=== PATIENT | female | born 1940 | race Caucasian/White ===

== ENCOUNTER → 2018-04-30 13:41 | Outpatient (CLI) | payer OTHER, SELFPAY ==
--- NOTE | 2018-04-30 13:46 | RAD_ITS ---
STUDY: X-RAY - CERVICAL SPINE REASON FOR EXAM: Female, 77 years old. Bilateral arm tingling and neck pain after falling facedown 2 weeks ago. TECHNIQUE: 5 view(s) of the cervical spine were obtained. COMPARISON: None FINDINGS: Pronounced degenerative narrowing of the predental space. Normal lateral atlantoaxial articulations. Normal odontoid process. Normal cervical lordosis. Normal vertebral bodies and endplates. Moderate disc space height narrowing at C4-C5, C5-C6 and C6-C7 disc space levels. Moderate stenosis of the right C4-C5, right C5-C6 intervertebral neural foramen and mild stenosis of the right C6-C7 intervertebral neural foramen. The soft tissue structures are unremarkable. RAD/Cerv Spine 4 or 5 Views IMPRESSION: 1. No acute osseous abnormality of the cervical spine. 2. Moderate disc space height narrowing at C4-C5 down to C6-C7 disc space levels. 3. 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 4. Mild stenosis of the right C6-C7 intervertebral neural foramen due to osteophytic encroachment. Electronically Signed: Mayur Calles MD at 14:54 EDT , Service support ,
== END ==
PROVIDERS: Family Provider Nurse Practitioner; PCP Nurse Practitioner; Visit Provider Nurse Practitioner
DX: M54.12 Radiculopathy, cervical region (principal); M48.02 Spinal stenosis, cervical region
CPT/HCPCS: 72050

== ENCOUNTER → 2018-05-21 09:51 | Outpatient (CLI) | payer MEDICARE, SELFPAY | PROVIDERS: Family Provider Nurse Practitioner; PCP Nurse Practitioner; Visit Provider Nurse Practitioner | DX: Z12.31 Encounter for screening mammogram for malignant neoplasm of breast (principal); Z78.0 Asymptomatic menopausal state | CPT/HCPCS: 77063; 77067 ==

== ENCOUNTER → 2018-07-07 14:14 | Outpatient (CLI) | payer MEDICARE, SELFPAY ==
--- NOTE | 2018-07-07 15:31 | NEURO ---
NCS and/or EMG Patient Report Ordering Doctor: Oksana Anglin DATE OF SERVICE: 07/07/18 Elizabeth Collier is a 77-year-old female presents for electrodiagnostic testing of the right upper limb. She reports numbness and tingling through the right arm with tingling in the fingertips. Electrodiagnostic findings: The right median motor nerve demonstrates prolonged distal latency with normal amplitude and conduction velocity. Normal right ulnar motor response. Normal right median and ulnar F waves. Prolonged right median sensory distal latency. Needle EMG testing demonstrates no evidence of denervation in any muscles tested, including the right cervical paraspinals. Motor unit action potentials were of normal amplitude and duration. Electrodiagnostic impression: This is an abnormal study in the right upper limb. 1. Electrodiagnostic findings demonstrate right-sided median mononeuropathy. This is consistent with a mild right carpal tunnel syndrome. 2. No electrodiagnostic evidence is noted for cervical radiculopathy. If there are any further questions, please do not hesitate to contact me
== END ==
PROVIDERS: Family Provider Nurse Practitioner; PCP Nurse Practitioner; Referring Provider Nurse Practitioner; Visit Provider Nurse Practitioner
DX: R20.2 Paresthesia of skin (principal)
CPT/HCPCS: 95886; 95909

== ENCOUNTER → 2019-05-24 14:12 | Outpatient (CLI) | payer MEDICARE, SELFPAY ==
--- NOTE | 2019-05-24 14:17 | BI_ITS ---
MAMMOGRAPHY - BILATERAL SCREENING REASON FOR EXAM: Female, 78 years old. Routine annual screening examination. PERTINENT HISTORY: Non-contributory. TECHNIQUE: Digital bilateral breast jax (3D mammographic acquisition) in the CC and MLO projections. 2-D mediolateral oblique (MLO) and craniocaudad (CC) views of both breasts were obtained. CAD: Full Field Digital Mammography with Computer Added Detection was performed. COMPARISON: Comparison is made with prior study dated May 21, 2018 and May 07, 2017. FINDINGS: Breast Composition: The breasts are almost entirely fatty. There are no dominant masses or suspicious calcifications. No other significant abnormalities are identified. There has been no significant change since the prior study. BI/SCREEN MAMM (CAD) W/JAX BILAT IMPRESSION: Stable bilateral screening mammogram. Yearly follow-up mammogram recommended. (A) ASSESSMENT CATEGORY: BIRADS Category 1: Negative. A letter regarding these results will be sent to the patient by the facility within 30 days. Approximately 10% of breast cancers are not detected by mammography. A normal mammogram should not delay biopsy of a clinically suspicious abnormality. [id number] Electronically Signed: Dawit Jensen, at 15:30 EDT , Service support ,
--- NOTE | 2019-05-24 14:26 | BD_ITS ---
STUDY: DUAL ENERGY X-RAY ABSORPTIOMETRY / DXA REASON FOR EXAM: Female, 78 years old. The patient is postmenopausal. Loss of height. TECHNIQUE: Bone Mineral Density (BMD) measurements of lumbar spine and bilateral hips were obtained. COMPARISON: Comparison is made with prior examination dated May 07, 2017. FINDINGS: Lumbar Spine (L1-L4): g/cm2 (0.918) / T-score (-2.1) / Z-score (-0.3) Findings are suggestive of osteopenia with a moderate fracture risk. Left Femur Total: g/cm2 (0.928) / T-score (-0.6) / Z-score (1.2) Left Femoral Neck: g/cm2 (0.886) / T-score (-1.1) / Z-score (0.9) Right Femur Total: g/cm2 (0.845) / T-score (-1.3) / Z-score (0.5) Right Femoral Neck: g/cm2 (0.805) / T-score (-1.7) / Z-score (0.3) The T-Scores on the most recent prior examination were: Lumbar Spine (L1-L4): There has been improvement of bone density since the previous examination. Left Femur Total: which represents a worsening of 1.8%. Right Femur Total: which represents an improvement of 8.2%. BD/Dexa Bone Density Study IMPRESSION: The patient is considered osteopenic as outlined below according to World Giles Organization (WHO) criteria with a moderate fracture risk. There has been improvement of bone density since the previous examination. Reference Information: The T-score is the number of standard deviations above or below the standard which is normal for young adults at their peak bone mineral density. The World Health Organization (WHO) interprets the T-scores as follows: Above -1 Normal bone density Between -1 and -2.5 Osteopenia Equal to / or below -2.5 Osteoporosis As a practical clinical guideline, osteopenia may be graded as follows: Mild -1 through -1.5 Moderate -1.6 through -2.0 Severe -2.1 through -2.4 The Z-score is the number of standard deviations above or below age-matched controls. A Z-score of less than -1.5 would be considered abnormal. References: 1. NIH Osteoporosis and Related Bone Diseases http://www.osteo.org 2. International Society for Clinical Densitometry http://www.iscd.org 3. National Osteoporosis Foundation http://www.nof.org Electronically Signed: Dawit Jensen, at 15:07 EDT , Service support ,
== END ==
PROVIDERS: Family Provider Nurse Practitioner; PCP Nurse Practitioner; Referring Provider Nurse Practitioner; Visit Provider Nurse Practitioner
DX: Z78.0 Asymptomatic menopausal state (principal); Z12.31 Encounter for screening mammogram for malignant neoplasm of breast
CPT/HCPCS: 77063; 77067; 77080

== ENCOUNTER → 2020-04-20 09:08 | Outpatient (CLI) | payer MEDICARE, SELFPAY ==
--- NOTE | 2020-04-20 09:12 | RAD_ITS ---
STUDY: AIR-CONTRAST BARIUM ESOPHAGRAM REASON FOR EXAM: Female, 79 years old. dysphagia with meats RADIATION DOSAGE (If Supplied By Facility): CTDIvol = ( ) mGy, DLP = ( ) mGycm. Individualized dose optimization techniques were used for this CT.? FLUOROSCOPY TIME (if supplied): ( 0:51 ) minutes/seconds TECHNIQUE: Air-contrast COMPARISON: None. FINDINGS: Swallowing was initiated normally. No nasopharyngeal reflux or aspiration. No Zenker''s diverticulum noted on the lateral view. There are however prominent spurs on the anterior aspect of the cervical vertebra which impinge upon the posterior esophagus from C5 through C7 Normal peristaltic activity noted in the proximal and mid esophagus. The distal esophagus demonstrates numerous tertiary contractions with intraesophageal and GE reflux. Additionally, there is enlargement of the heart which deviates the esophagus posteriorly and creates an abnormal angle at the GE junction. A 13 mm barium pill passed through the esophagus without difficulty RAD/Esophagus Dual Contrast IMPRESSION: Presbyesophagus with intraesophageal and GE reflux No demonstrated mass stricture or ulceration Anterior spurs of the lower cervical spine impinge upon the posterior esophagus and may be contributing to the dysphagia Cardiomegaly deviates the posterior distal esophagus creating an abnormal angle at the GE junction which may contribute to poor emptying of the esophagus Electronically Signed: Deshawn Vasquez MD at 12:13 EDT , Service support ,
== END ==
PROVIDERS: PCP Nurse Practitioner; Referring Provider Internal Medicine Gastroenterology; Visit Provider Internal Medicine Gastroenterology
DX: R13.10 Dysphagia, unspecified (principal)
CPT/HCPCS: 74221

== ENCOUNTER → 2020-05-22 09:39 | Outpatient (CLI) | payer MEDICARE, SELFPAY ==
--- NOTE | 2020-05-22 09:47 | ECHOD_ITS ---
Reason For Study: CARDIOMEGALY Procedure This was a 2D Doppler, Color Flow transthoracic echocardiogram. The exam was of adequate technical quality. Exam performed in department. Left Ventricle Normal LV size. Left ventricular systolic function is normal. The estimated ejection fraction is 55 %. No evidence for diastolic dysfunction. No regional wall motion abnormalities noted. Right Ventricle Normal RV size. Normal systolic function. Atria Normal left atrium. Normal right atrium. No doppler evidence for ASD. Mitral Valve There is no mitral annular calcification. Normal mitral valve. Trivial mitral valve insufficiency. Tricuspid Valve Normal tricuspid valve. Trivial tricuspid valve insufficiency. Right ventricular systolic pressure estimated to be 29 mmHg. Aortic Valve Trisinus/trileaflet aortic valve. Normal aortic valve. Trivial aortic valve insufficiency. Pulmonic Valve The pulmonic valve is not well visualized. Great Vessels Normal sized aortic root. Pericardium/Pleural No pericardial effusion. MMode/2D Measurements & Calculations LVIDd: 5.1 cm IVSd: 1.2 cm Ao root diam: 2.8 cm LVIDs: 3.8 cm LVPWd: 1.2 cm RVDd: 3.0 cm FS: 26.2 % LAV(MOD-bp): 63.0 ml LA A4 area: 18.2 cm2 LA dimension(2D): 3.7 cm LAV(MOD-bp) Indexed: 33.3 ml/m2 LAV(MOD-sp2): 69.2 ml LAV(MOD-sp4): 50.3 ml RA A4 area: 13.2 cm2 Doppler Measurements & Calculations MV E max raúl: 46.1 cm/sec Lat Peak E' Raúl: 5.5 cm/sec Med Peak E' Raúl: 5.6 cm/sec MV A max raúl: 77.3 cm/sec E/E' lat: 8.4 E/E' med: 8.2 MV E/A: 0.60 Ao V2 max: 143.7 cm/sec LV V1 max: 96.6 cm/sec PA V2 max: 103.0 cm/sec Ao max P.3 mmHg LV V1 max P.7 mmHg Ao V2 mean: 105.6 cm/sec Ao mean P.8 mmHg Ao V2 VTI: 31.6 cm TR max raúl: 255.5 cm/sec TR max P.1 mmHg Interpretation Summary Left ventricular systolic function is normal. The estimated ejection fraction is 55 %. Trivial mitral valve insufficiency. Trivial tricuspid valve insufficiency. Trivial aortic valve insufficiency. Right ventricular systolic pressure estimated to be 29 mmHg. No evidence for diastolic dysfunction. Ordering Physician: Oksana Anglin Referring Physician: Oksana Anglin Performed By: Radha Rodriguez, JAIME, RVT
== END ==
PROVIDERS: PCP Nurse Practitioner; Referring Provider Nurse Practitioner; Visit Provider Nurse Practitioner
DX: I51.7 Cardiomegaly (principal)
CPT/HCPCS: 93306

== ENCOUNTER → 2020-05-25 10:27 | Outpatient (CLI) | payer MEDICARE, SELFPAY ==
--- NOTE | 2020-05-25 10:51 | BI_ITS ---
MAMMOGRAPHY - BILATERAL SCREENING REASON FOR EXAM: Female, 79 years old. Routine annual screening examination. PERTINENT HISTORY: Non-contributory. TECHNIQUE: Digital bilateral breast jax (3D mammographic acquisition) in the CC and MLO projections. 2-D mediolateral oblique (MLO) and craniocaudad (CC) views of both breasts were obtained. CAD: Full Field Digital Mammography with Computer Added Detection was performed. COMPARISON: Comparison is made with prior examination date 05/24/2019 and 05/21/2018. FINDINGS: Breast Composition: The breasts are almost entirely fatty. There are no dominant masses or suspicious calcifications. No other significant abnormalities are identified. There has been no significant change since the prior study. BI/SCREEN MAMM (CAD) W/JAX BILAT IMPRESSION: Stable bilateral screening mammogram. Yearly follow-up mammogram recommended. (A) ASSESSMENT CATEGORY: BIRADS Category 1: Negative. A letter regarding these results will be sent to the patient by the facility within 30 days. Approximately 10% of breast cancers are not detected by mammography. A normal mammogram should not delay biopsy of a clinically suspicious abnormality. [id number] Electronically Signed: Dawit Jensen, at 12:58 EDT , Service support ,
== END ==
PROVIDERS: PCP Nurse Practitioner; Referring Provider Nurse Practitioner; Visit Provider Nurse Practitioner
DX: Z12.31 Encounter for screening mammogram for malignant neoplasm of breast (principal)
CPT/HCPCS: 77063; 77067

== ENCOUNTER → 2022-05-20 | Outpatient (CLI) | payer MEDICARE, SELFPAY ==
--- NOTE | 2022-05-20 09:19 | BD_ITS ---
STUDY: DUAL ENERGY X-RAY ABSORPTIOMETRY / DXA REASON FOR EXAM: Female, 81 years old. M85.89. Patient is postmenopausal. TECHNIQUE: Bone Mineral Density (BMD) measurements of lumbar spine and bilateral hips were obtained. COMPARISON: Comparison is made with prior study dated 05/24/2019. FINDINGS: Lumbar Spine (L1-L4): g/cm2 (0.848) / T-score (-1.8) / Z-score (0.9) Findings are suggestive of osteopenia with a moderate fracture risk. Left Femur Total: g/cm2 (0.848) / T-score (-0.8) / Z-score (1.3) Left Femoral Neck: g/cm2 (0.705) / T-score (-1.3) / Z-score (1.0) Right Femur Total: g/cm2 (0.768) / T-score (-1.4) / Z-score (0.6) Right Femoral Neck: g/cm2 (0.669) / T-score (-1.6) / Z-score (0.7) The T-Scores on the most recent prior examination were: Lumbar Spine (L1-L4): There has been worsening of bone density since the previous examination. Left Femur Total: which represents a worsening of 1.8%. Right Femur Total: which represents a worsening of 2%. BD/Dexa Bone Density Study IMPRESSION: The patient is considered osteopenic as outlined below according to World Giles Organization (WHO) criteria with a moderate fracture risk. There has been worsening of bone density since the previous examination. Reference Information: The T-score is the number of standard deviations above or below the standard which is normal for young adults at their peak bone mineral density. The World Health Organization (WHO) interprets the T-scores as follows: Above -1 Normal bone density Between -1 and -2.5 Osteopenia Equal to / or below -2.5 Osteoporosis As a practical clinical guideline, osteopenia may be graded as follows: Mild -1 through -1.5 Moderate -1.6 through -2.0 Severe -2.1 through -2.4 The Z-score is the number of standard deviations above or below age-matched controls. A Z-score of less than -1.5 would be considered abnormal. References: 1. NIH Osteoporosis and Related Bone Diseases www osteo.org 2. International Society for Clinical Densitometry www iscd.org 3. National Osteoporosis Foundation www nof.org Electronically Signed: Dawit Jensen MD at 14:06 EDT ,
== END | disposition home or self-care (01) ==
PROVIDERS: PCP Nurse Practitioner Family; Visit Provider Nurse Practitioner Family
DX: M85.80 Other specified disorders of bone density and structure, unspecified site (principal); Z78.0 Asymptomatic menopausal state
CPT/HCPCS: 77080

== ENCOUNTER 2022-07-03 10:00 | Outpatient (RCR) | payer MEDICARE, SELFPAY ==
--- NOTE | 2022-05-19 12:58 | HP.PTEVAL_ITS ---
Patient's Visit Information ALVAREZ ISABEL is a 81 year old F referred to Physical Therapy by CATHERINE MccannC with a diagnosis of Multiple falls. Date of Evaluation: 05/19/22 Physical Therapist: Luis Stacy, PT, ATC - Visit Plan Frequency: 2x /Week Duration: 4 Weeks Plan: B hip/knee/ankle strengthening, balance and proprio, gait training, nustep, and HEP - Subjective Pt reports she has had balance difficulty for a couple years. Pt reports her balance has progressively worsened over that time span. Pt reports she usually falls secondary to catching her foot on the ground. Pt reports she has lossed her balance on several occasions, but has only experienced 2 falls. Pt reports the first fall occurred [place] she [place] on her face which resulted in a broken nose. Pt reports 2 weeks ago, she was getting adjusted by her chiropractor, and after leaving the office, she fell again. Pt reports she has good sensation in her feet. Pt reports she does experience cramps in her feet. Pt reports she occasionally gets dizzy and lightheaded. Pt reports she has experienced those sx's since she had covid in January. Pt reports her dizziness only lasts for a couple seconds, and usually occurs when she turns her head. - Objective Neuro: B LE sensation is WNL to light touch. B patellar reflex= 2/3. Transfers: Pt is I with all transfers. MMT: B LE's are grossly rated at 4-/5 throughout. Gait: FGA: - Balance/Special Test Scores Functional Gait Assessment Score: 17 % Disability: 43.3400 Lower Extremity Functional Score: 57 - Goals Goal 1:: Increase B LE strength x 1 grade to aid with stair negotiation Goal Time Frame: 4-6 Weeks Goal 2:: Increase FGA score x 5 points to aid with preventing future falls Goal Time Frame: 4-6 Weeks Goal 3:: I with HEP Goal Time Frame: 4-6 Weeks - Rehabilitation Potential Physical Therapy Diagnosis: Pt has B LE weakness and a Hx of falls secondary to general weakness Rehabilitation Potential: Good - Anticipated Interventions Patient/Client Instruction: Educate patient on: Condition, Plan of Care For the Purpose of:: To improve self management, To prevent re-injury Therapeutic Exercise to Include: Strength training, Endurance training, Balance training, Gait and locomotor training, Dynamic Lumbar Stabilization For the Purpose of:: To improve muscle performance and motor function, To increase tolerance to activity/condition/position, To improve gait and locomotor functions Thank you for the opportunity to evaluate your patient. For Medicare and Medicare HMO plans, please review the plan of care and approve it. It will need to be FAXED BACK to us at [phone] for Medicare purposes. For Medicare only, by signing this I certify the plan of care. Please let me know if there are questions or concerns regarding this plan of care. Physician Signature: Date:
--- NOTE | 2022-07-03 10:31 | HP.PTDCSUM ---
It has been my pleasure to treat ALVAREZ ISABEL referred by Joellen Duffy, LORELEI-C, with the diagnosis of Multiple falls for a total of 9 visit(s). Discharge Date: Please see the following information for a summary of their discharge status. Subjective: I have improved a lot at this time % Improvement: 80 Objective/Function: FGA= significant improvement. MMT: B LE's 5/5 throughout. Pt is I with HEP and has achieved Rx goals Goal 1:: Increase B LE strength x 1 grade to aid with stair negotiation Goal Progress: Goal Met Goal 2:: Increase FGA score x 5 points to aid with preventing future falls Goal Progress: Goal Met Goal 3:: I with HEP Goal Progress: Goal Met Plan: Discharge to HEP If there are questions or concerns regarding this patient's physical therapy, please feel free to call me at [phone]. Thank you for the referral of this patient. Sincerely, Luis Stacy, PT, ATC Balance/Gait/Functional tests - Balance/Special Test Scores Functional Gait Assessment Score: 22 % Disability: 26.6700 Lower Extremity Functional Score: 65
== END 2022-07-03 10:42 | disposition home or self-care (01) ==
LOC: PT 10:00
PROVIDERS: PCP Nurse Practitioner Family; Referring Provider Nurse Practitioner Family; Visit Provider Nurse Practitioner Family
DX: R29.6 Repeated falls (principal)
CPT/HCPCS: 97110; 97161; 97164

== ENCOUNTER → 2022-08-01 | Outpatient (CLI) | payer MEDICARE, SELFPAY ==
--- NOTE | 2022-08-01 09:52 | CDU_ITS ---
Reason For Study: Dizziness Rt. Velocities/BP Lt. Velocities/BP Prox CCA 52.2/16.3 cm/sec. Prox CCA 60.8/14.6 cm/sec. Mid CCA 73/19.2 cm/sec. Mid CCA 59.7/16.8 cm/sec. Dist CCA 60.7/17.3 cm/sec. Dist CCA 54.2/12.4 cm/sec. Prox ICA 43.7/12.6 cm/sec. Prox ICA 34.3/9.7 cm/sec. Mid ICA 62.6/21.1 cm/sec. Mid ICA 56/14.5 cm/sec. Dist ICA 75.1/25.6 cm/sec. Dist ICA 53.2/19.2 cm/sec. Rt. ICA/CCA = 1.24. Lt. ICA/CCA = 0.94. Prox ECA 43.7/8.8 cm/sec. Prox ECA 52/8 cm/sec. Rt. Vert. 30/5.8 cm/sec. Lt. Vert. 37.1/8.8 cm/sec. Right Extracranial There is intimal thickening but no significant atherosclerotic plaque noted in the right common carotid artery. There is intimal thickening but no significant atherosclerotic plaque noted in the right internal carotid artery. There is intimal thickening but no significant atherosclerotic plaque noted in the right external carotid artery. Antegrade flow is noted in the right vertebral artery. Left Extracranial There is intimal thickening but no significant atherosclerotic plaque noted in the left common carotid artery. There is heterogeneous, irregular atherosclerotic plaque noted in the left internal carotid artery. There is intimal thickening but no significant atherosclerotic plaque noted in the left external carotid artery. Antegrade flow is noted in the left vertebral artery. Procedure Carotid Duplex [id number]. This is a Carotid Duplex examination using B-mode, color flow and specral Doppler. Exam performed in department. VL/Carotid Duplex Ultrasound Interpretation Summary Intimal thickening at the proximal right internal carotid artery with less than 50% stenosis Less than 50% stenosis right external carotid artery Minimal irregular plaque at the proximal left internal carotid artery with less than 50% stenosis Less than 50% stenosis left external carotid artery Patent and antegrade vertebral arteries bilaterally No change from the blood flow screening examination of January 07, 2019 Ordering Physician: Joellen Duffy Referring Physician: Joellen Duffy Performed By: Wendy Holbrook RVT
== END | disposition home or self-care (01) ==
LOC: CVS 09:50
PROVIDERS: PCP Nurse Practitioner Family; Referring Provider Nurse Practitioner Family; Visit Provider Nurse Practitioner Family
DX: I65.23 Occlusion and stenosis of bilateral carotid arteries (principal); I10 Essential (primary) hypertension; R26.9 Unspecified abnormalities of gait and mobility
CPT/HCPCS: 93880

== ENCOUNTER → 2022-08-11 | Outpatient (CLI) | payer MEDICARE, SELFPAY ==
[2022-08-11 15:39] LABS: Absolute Lymphocyte Count 0.82 X10^3/uL (0.83-4.51); Basophil# 0.03 X10^3/uL; Basophil% 0.6 % (0-1); Eosinophil# 0.05 X10^3/uL; Eosinophils% 0.9 % (0-5); Hematocrit 42.4 % (37-47); Lymphocyte # 0.82 X10^3/ul (0.83-4.51); Lymphocyte % 15.2 % (19-41); Mean Corpuscular Hgb 30.6 pg (27.0-32.0); Mean Corpuscular Volume 92.8 fL (81-99); Mean Platelet Vol. 12.2 fl (6.2-12.0); Monocyte# 0.45 X10^3/uL; Monocyte% 8.4 % (0-10); NRBC Flagged by Analyzer 0 % (0-5); Neutrophil # 4.01 X10^3/uL (2.7-7.7); Neutrophil % 74.5 % (47-70); Platelet Count 184 K/mm3 (150-450); RBC Distribution Width CV 13.4 % (11.6-14.6); RBC Distribution Width SD 45.7 fl (35.1-43.9); Red Blood Count 4.57 M/mm3 (4.2-5.4); White Blood Count 5.4 K/mm3 (4.4-11.0)
[2022-08-11 15:57] LABS: ALB/GLOB Ratio 1.3 RATIO (0.9-2.4); AST(SGOT) 30 U/L (15-37); Alanine Aminotransfer ALT/SGPT 24 U/L (13-56); Albumin, Serum 3.8 g/dL (3.2-5.0); Alkaline Phosphatase 57 U/L (45-117); Anion Gap 6 (5-15); BUN 15 mg/dL (7-18); BUN/Creat Ratio 16.9 RATIO (10-20); Calcium,Total 9.5 mg/dL (8.5-10.1); Chloride 106 mmol/L (98-107); Creatinine, Serum 0.89 mg/dL (0.55-1.02); EST Glomerular Filtration Rate 65 mL/min (>60); Est Glom Filt Rate - Afr Amer 79 mL/min (>60); Glucose 89 mg/dL (74-106); Potassium 4.6 mmol/L (3.5-5.1); Protein, Total 6.8 g/dL (6.4-8.2); Sodium Level 140 mmol/L (136-145)
== END | disposition home or self-care (01) ==
LOC: LABSPEC 15:16
PROVIDERS: PCP Nurse Practitioner Family; Visit Provider Nurse Practitioner Family
DX: R55 Syncope and collapse (principal)
CPT/HCPCS: 80053; 85025

== ENCOUNTER → 2022-08-11 | Outpatient (CLI) | payer MEDICARE, SELFPAY ==
--- NOTE | 2022-08-11 18:16 | MRI_ITS ---
STUDY: MRI BRAIN WITH AND WITHOUT CONTRAST REASON FOR EXAM: Female, 81 years old. Syncopal episodes TECHNIQUE: Standardized multiplanar fat and water weighted pulse sequences were obtained. IV 17mL CLARISCAN was administered for the contrast portion of the examination. COMPARISON: December 12, 2016 CT brain and MR brain December 07, 2013 FINDINGS: Normal size of the ventricles and extra-axial spaces for the patient''s age. Normal white matter tracts of the supratentorial brain. Normal bilateral basal ganglia. Normal thalami. There is no extra-axial fluid accumulation. Normal flow voids within the major intracranial circulation suggesting patency by spin echo criteria. Normal venous enhancement. There is no enhancing intra-axial or extra-axial abnormality. Normal sella turcica, pituitary gland, infundibular stalk, optic chiasm and hypothalamus. Normal tectal plate and pineal gland. Normal midbrain, pop and medulla. Normal cerebellum. Normal basal cisterns. Normal bilateral temporal bones. Normal bilateral internal auditory canals. No demonstrated orbital abnormality, within the constraints of a routine brain study. Normal visualized paranasal sinuses. Normal calvarium and skull base. Normal visualized soft tissue structures. Normal visualized upper cervical spine. MRI/Brain W/WO Contrast IMPRESSION: Normal unenhanced and enhanced MRI of the brain. Electronically Signed: Wayne Birmingham MD at 19:59 EST ,
== END | disposition home or self-care (01) ==
PROVIDERS: PCP Nurse Practitioner Family; Referring Provider Nurse Practitioner Family; Visit Provider Nurse Practitioner Family
DX: R55 Syncope and collapse (principal)
CPT/HCPCS: 70553; 80053; 85025; A9575

== ENCOUNTER → 2022-08-12 | Outpatient (CLI) | payer MEDICARE, SELFPAY ==
--- NOTE | 2022-08-12 13:41 | CT_ITS ---
STUDY: CTA HEAD AND NECK WITH CONTRAST REASON FOR EXAM: Female, 81 years old. Syncopal episodes. Constant neck pain. RADIATION DOSAGE (If Supplied By Facility): CTDIvol = ( 27.88 ) mGy, DLP = ( 1470.17 ) mGycm TECHNIQUE: CT angiography was performed with a multi-detector CT scanner. Data acquisition was obtained from the skull base through the vertex following intravenous administration of IV 100mL Isovue-370. MIP images were reconstructed from the axial data set. Post-processing of the angiographic images was performed, with multiplanar reformation and 3D reconstruction. Individualized dose optimization techniques were used for this CT. COMPARISON: No relevant priors. FINDINGS: Normal bilateral petrous carotid arteries. There is calcified plaque formation of the right cavernous carotid artery, without a cross-sectional luminal stenosis. There is calcified plaque formation of the left cavernous carotid artery, without a cross-sectional luminal stenosis. Normal right A1 segments of the anterior cerebral artery. Normal left A1 segments of the anterior cerebral artery. Normal intact anterior communicating artery (ACOM). Normal bilateral A2 segments of the anterior cerebral arteries. Normal right M1 and M2 segments of the middle cerebral arteries, with a normal M1 bifurcation. Normal left M1 and M2 segments of the middle cerebral arteries, with a normal M1 bifurcation. Normal right posterior communicating artery (PCOM). Normal left posterior communicating artery (PCOM). Normal bilateral vertebral arteries. Normal basilar artery with a normal basilar bifurcation. The visualized bilateral superior cerebellar (SCA) arteries are normal. Normal bilateral P1, P2 and visualized P3 segments of the posterior cerebral arteries. There is no demonstrated aneurysm of the [place]. There is no demonstrated abnormality of the visualized brain. AORTIC ARCH: There is atherosclerotic calcific plaque formation of the aortic arch and great vessels arising from the aortic arch, without a hemodynamically significant stenosis. There is a normal origin of the brachiocephalic, left common carotid, and left subclavian arteries. RIGHT CAROTID ARTERIES: Normal right common carotid artery (CCA). Normal right common carotid bulb. Normal origin of the right internal carotid (ICA) artery without a hemodynamically significant stenosis. Normal visualized cervical portion of the right internal carotid artery. Normal origin of the right external carotid artery (ECA). LEFT CAROTID ARTERIES: Normal left common carotid artery (CCA). Normal left common carotid bulb. Tiny calcific plaque is seen at the origin of the left internal carotid artery. Normal visualized cervical portion of the left internal carotid artery. Normal origin of the left external carotid artery (ECA). VERTEBRAL ARTERIES: Normal bilateral vertebral arteries. CT/CTA Head AND Neck W/ Contrast IMPRESSION: Tiny calcific plaque is seen at the origin of the left internal carotid artery. No significant stenosis is seen. Electronically Signed: Dawit Jensen MD at 15:23 EST ,
== END | disposition home or self-care (01) ==
LOC: CT 13:39
PROVIDERS: PCP Nurse Practitioner Family; Referring Provider Nurse Practitioner Family; Visit Provider Nurse Practitioner Family
DX: R55 Syncope and collapse (principal)
CPT/HCPCS: 70496; 70498; Q9967

== ENCOUNTER → 2022-08-19 | Outpatient (CLI) | payer MEDICARE, SELFPAY | END | disposition home or self-care (01) | LOC: PSN 09:54 | PROVIDERS: PCP Nurse Practitioner Family; Referring Provider Nurse Practitioner Family; Visit Provider Nurse Practitioner Family | DX: R55 Syncope and collapse (principal) | CPT/HCPCS: 93225; 93226 ==

== ENCOUNTER → 2022-10-05 | Outpatient (CLI) | payer MEDICARE, SELFPAY ==
--- NOTE | 2022-10-05 07:25 | MRI_ITS ---
HISTORY: Neck pain for many years, faint feeling when turning head to the right, frequent falls. TECHNIQUE: Multiplanar and multisequence MR images of the cervical spine were obtained without contrast. 246 images. COMPARISON: XR 09/05/2022, CTA 08/12/2022. FINDINGS: VERTEBRAE: Vertebral body heights maintained. Mild degenerative endplate changes of C3-4, C4-5, C5-6, and C6-7. Mild facet edema of the right C4-5 and left C3-4 levels. VERTEBRAL ALIGNMENT: No significant anterior or posterior subluxation. SPINAL CORD: Cervical cord signal and morphology within normal limits. SOFT TISSUES: No prevertebral fluid collection. INTERVERTEBRAL DISCS: Mild posterior disc bulge osteophyte complexes with uncovertebral and facet arthropathy at multiple levels. C2-3: Minimal narrowing of the thecal sac. No significant foraminal narrowing. C3-4: Mild central canal stenosis. Mild left and moderate right foraminal narrowing. C4-5: Minimal narrowing of the thecal sac. Mild left and moderate right foraminal narrowing. C5-6: Mild central canal stenosis. Mild left and moderate right foraminal narrowing. C6-7: Minimal narrowing of the thecal sac. Mild-moderate bilateral foraminal narrowing. C7-T1: Minimal narrowing of the thecal sac. No significant foraminal narrowing. MRI/Spine Cervical (Routine) IMPRESSION: Mild multilevel degenerative disc and facet disease resulting in mild spinal canal stenosis and right greater than left foraminal narrowing as above. Electronically Signed: Lisy Morales MD at 10:08 EST ,
== END | disposition home or self-care (01) ==
PROVIDERS: PCP Nurse Practitioner Family; Visit Provider Orthopaedic Surgery
DX: M54.2 Cervicalgia (principal)
CPT/HCPCS: 72141

== ENCOUNTER 2022-10-31 07:19 | Outpatient (RCR) | payer MEDICARE, SELFPAY ==
--- NOTE | 2022-10-31 08:25 | HP.PTEVAL ---
Patient's Visit Information ALVAREZ ISABEL is a 82 year old F referred to Physical Therapy by Dr. Garry Worrell MD with a diagnosis of Lightheadedness, syncope. Date of Evaluation: 10/31/22 Physical Therapist: Syed Duffy, DPT, OCS, CSCS - Visit Plan Frequency: 1x/Week Duration: 2-4 Weeks Plan: weekly as needed x 2-4 tomonitor effects of trial of adapatation VOR ex and progress if needed and balance as needed/helpful. next session, recheck positional and oculomotor , possibly MSQ need for progression or hold on tilt table test/heart monitor results. Consider cervico genic if others - Subjective My biggest issue is that she feels like she might pass out and has to grab something. Feels like the lights are going out. No pattern to it and sometimes happens in sitting. Typically she thinks it is if her head is turned to the right for a while. had PT last fall from Dr. Irvin and saw Luis as her balance was. That started last year and felt imbalance and like head is full. Fell last summer 2x. 3rd time she blacked out and fell and first two times she caught foot on floor. Currently she has not had an incident in the last few weeks but was happening 3-4x/week. Has lots of neck issues and Dr. Irvin does not think it is the problem. Then she was sent to Dr. Worrell. Willhave tilt table test 11/25. Will get heart monitor in mail and then f/u. Activities are pretty normal but just causes havoc if it happens. These spells typically last seconds. needs to sit down and goes away in seconds to minutes. Sleep is not great but that is normal for her. 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 Has cane and does not use. - Pain DANIEL Pain Intensity (Out of 10): 0 Pain Intensity Range: 0, 2 - Objective Walks and transfers safe and I on firm flat surface and bed and chair trasnfers. Steps are reciprocal with one rail. cervical AROM is 50 B rotation and 40 extension with some slight discomfort B rotations at end range. UE AROM WFL, reflexes 2/3 bi and tri, sensation WNL to gross light touch in UE, strength UE 4- without myotomal abnormalities in UE. - B hallpike jocelyn tests today, - roll tests. Oculomotor: no nystagmus with gaze or head shake. pursuit and saccades are normal and asymptomatic. VOR is slightly off putting horizontal for a second but not vertically. - ocular tilt. - skew eye deviation. - head thrust. No obvious vestibular problems other than some possible weakness but nothing that would point to a problem with passing out or lightheadedness. - Balance/Special Test Scores Functional Gait Assessment Score: 25 % Disability: 16.6700 CATSIB Score (Max score 120 seconds): 120 Dizziness Score: 28 - Goals Goal 1:: Trial of adaptation ex show improvement Goal Time Frame: 2-4 Weeks - Rehabilitation Potential Physical Therapy Diagnosis: vestibualr weakness a possibility Rehabilitation Potential: Questionable - Anticipated Interventions Patient/Client Instruction: Educate patient on: Condition, Plan of Care For the Purpose of:: To decrease pain, To improve muscle performance and motor function, To increase tolerance to activity/condition/position Therapeutic Exercise to Include: Balance training Comment: adaptation exercises trial. For the Purpose of:: To increase tolerance to activity/condition/position Thank you for the opportunity to evaluate your patient. For Medicare and Medicare HMO plans, please review the plan of care and approve it. It will need to be FAXED BACK to us at [phone] for Medicare purposes. For Medicare only, by signing this I certify the plan of care. Please let me know if there are questions or concerns regarding this plan of care. Physician Signature: Date:
--- NOTE | 2023-01-06 10:56 | HP.PT.NRP ---
ALVAREZ ISABEL was seen in my office for initial evaluation on 10/31/22. The following Plan of Care was established for this patient: Initial Frequency: 1x/Week Initial Duration: 2-4 Weeks Patient/Client Instruction: Educate patient on: Condition, Plan of Care For the Purpose of:: To decrease pain, To improve muscle performance and motor function, To increase tolerance to activity/condition/position Therapeutic Exercise to Include: Balance training For the Purpose of:: To increase tolerance to activity/condition/position This patient was last seen in our office 10/31/22. Pertinent comments regarding their Physical therapy will appear below: Pt seen one visit of POC and did not return or schedule any further visits. At this point, it has been over two months and I will discontinue due to nonattendance. At this point I will be discontinuing this patient from physical therapy. I would be happy to see this patient again in the future if found appropriate by the physician. Thank you! Syed Duffy, DPT, OCS, CSCS Balance/Gait/Functional tests - Balance/Special Test Scores Functional Gait Assessment Score: 25 % Disability: 16.6700 CATSIB Score (Max score 120 seconds): 120 Dizziness Score: 28
== END 2022-10-31 19:00 | disposition home or self-care (01) ==
LOC: PT 07:19
PROVIDERS: PCP Nurse Practitioner Family; Referring Provider Psychiatry & Neurology Sleep Medicine; Visit Provider Psychiatry & Neurology Sleep Medicine
DX: R42 Dizziness and giddiness (principal); R55 Syncope and collapse
CPT/HCPCS: 97162

== ENCOUNTER → 2022-11-25 | Outpatient (CLI) | payer MEDICARE, SELFPAY ==
[2022-11-25 09:26] LABS: Hematocrit 44.2 % (37-47); Hemoglobin 14.5 g/dL (12.0-15.0); Mean Corp Hgb Conc 32.8 g/dL (32-36); Mean Corpuscular Volume 94.6 fL (81-99); Mean Platelet Vol. 11.7 fl (6.2-12.0); Platelet Count 162 K/mm3 (150-450); RBC Distribution Width CV 13.8 % (11.6-14.6); RBC Distribution Width SD 48.1 fl (35.1-43.9); Red Blood Count 4.67 M/mm3 (4.2-5.4)
[2022-11-25 09:39] LABS: Anion Gap 4 (5-15); BUN 15 mg/dL (7-18); BUN/Creat Ratio 14.2 RATIO (10-20); Calcium,Total 9.5 mg/dL (8.5-10.1); Chloride 107 mmol/L (98-107); Creatinine, Serum 1.06 mg/dL (0.55-1.02); EST Glomerular Filtration Rate 53 mL/min (>60); Est Glom Filt Rate - Afr Amer 64 mL/min (>60); Glucose 111 mg/dL (74-106); Potassium 4.3 mmol/L (3.5-5.1); Sodium Level 141 mmol/L (136-145)
--- NOTE | 2022-11-25 16:56 | TILTTABLE_ITS ---
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 She was awake and alert and warm and dry. Her baseline heart rate was 82 bpm with a baseline blood pressure 172/94 mmHg. The cardiac rhythm was normal sinus rhythm. The patient was placed in the 70 degree upright tilt table position for approximately 20 minutes. The patient remained alert and oriented and warm and dry. The initial heart rate was 71 bpm. The blood pressure was 149/82 mmHg. The minimal heart rate was 67 bpm with a minimal blood pressure of 132/74 mmHg. The patient remained in normal sinus rhythm with a rare PVC. The patient reported her hands feeling cool and her arms feeling cool. The patient did not lose consciousness. The patient was subsequently administered nitroglycerin sublingual 0.4 mg x 1. The patient continued in the 70 degree upright tilt table position. She was initially alert and oriented and warm and dry. She subsequently came diaphoretic and unresponsive. The initial heart rate was 100 bpm. The minimal heart rate was 41 bpm. The blood pressure decreased to 64/40 mmHg (manual blood pressure recording). The cardiac rhythm was noted to demonstrate sinus rhythm/sinus bradycardia with subsequent junctional rhythm with subsequent return to sinus bradycardia gradual return to normal sinus rhythm. It was a rare PVC. During this time the patient initially stated she felt a little warm inside and then was reported as demonstrating eyes rolled to the back of head, closed eyes, no response from name-calling . The patient was subsequently placed in the supine position. The patient did receive 0.9 normal saline 500 cc x 1. She subsequently was noted to become responsive. She was noted to appear alert and oriented and initially pale and subsequently warm and dry. The heart rate was 44 bpm with a blood pressure of 98/68 mmHg. Her vital signs subsequently demonstrated a heart rate of 71 bpm with a blood pressure 135/66 mmHg. The cardiac rhythm remains sinus rhythm with a rare PVC. The patient was subsequently thought to be symptomatically and hemodynamically stable. She was eventually released home from the tilt table laboratory. 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 This note was generated using a voice recognition system and there may be incorrect words, spelling or punctuation that were not noted when reviewing the office note prior to saving.
[2022-11-25 17:04] VITALS: BP 149/82; BP 172/94; BP 64/40
== END | disposition home or self-care (01) ==
PROVIDERS: PCP Nurse Practitioner Family; Referring Provider Psychiatry & Neurology Sleep Medicine; Visit Provider Psychiatry & Neurology Sleep Medicine
DX: R55 Syncope and collapse (principal)
CPT/HCPCS: 36415; 80048; 85027; 93660; J7040; A4216

== ENCOUNTER → 2023-04-03 | Outpatient (CLI) | payer MEDICARE, SELFPAY ==
--- NOTE | 2023-04-03 14:34 | VDLE_ITS ---
Reason For Study: Edema of left leg RIGHT LEFT CFV is compressible, spontaneous, phasic, GSV is normal. competent and demonstrates normal CFV is compressible, spontaneous, phasic, augmentation. competent, and demonstrates normal Procedure augmentation. This is a venous duplex using B-mode, color FV is compressible, spontaneous, phasic, flow and spectral Doppler. competent and demonstrates normal Exam performed in department. augmentation. A preliminary report was called and/or faxed POP V is compressible, spontaneous, phasic, to Kerry. competent and demonstrates normal augmentation. T/P Trunk is compressible. PTV is compressible. Acute deep vein thrombosis is noted in the Royer V mid. It is dilated and NONCOMPRESSIBLE. VL/Venous Duplex US, Unilateral Interpretation Summary Acute deep venous thrombosis left peroneal vein. Patent and compressible left great saphenous vein Normal flow patterns right common femoral vein Ordering Physician: Joellen Duffy Referring Physician: Joellen Duffy Performed By: Wendy Holbrook RVT
== END | disposition home or self-care (01) ==
LOC: CVS 14:32
PROVIDERS: PCP Nurse Practitioner Family; Referring Provider Nurse Practitioner Family; Visit Provider Nurse Practitioner Family
DX: R60.0 Localized edema (principal)
CPT/HCPCS: 93971

== ENCOUNTER → 2023-06-10 | Outpatient (CLI) | payer MEDICARE, SELFPAY ==
[2023-06-10 17:16] LABS: Anion Gap 3 (5-15); BUN 24 mg/dL (7-18); BUN/Creat Ratio 24.9 RATIO (10-20); Calcium,Total 9.5 mg/dL (8.5-10.1); Chloride 109 mmol/L (98-107); Creatinine, Serum 0.96 mg/dL (0.55-1.02); EST Glomerular Filtration Rate 59 mL/min (>60); Est Glom Filt Rate - Afr Amer 72 mL/min (>60); Glucose 100 mg/dL (74-106); Potassium 4.2 mmol/L (3.5-5.1); Sodium Level 140 mmol/L (136-145)
== END | disposition home or self-care (01) ==
LOC: LAB 16:16
PROVIDERS: PCP Nurse Practitioner Family; Referring Provider Internal Medicine Cardiovascular Disease; Visit Provider Internal Medicine Cardiovascular Disease
DX: R55 Syncope and collapse (principal)
CPT/HCPCS: 36415; 80048

== ENCOUNTER 2023-07-06 07:25 | Day surgery (SDC) | payer MEDICARE, SELFPAY ==
[2023-06-11 08:56] VITALS: BMI 37.8
--- NOTE | 2023-07-06 09:05 | CL.IE_ITS ---
Patient: ALVAREZ ISABEL Study Date: 07/06/2023 Performing: Donavan Lamb MD : [id number] Age: 82 Gender: female PROCEDURES PERFORMED [id number])INSERTION OF LOOP RECORDER INDICATIONS Syncope PROCEDURE DETAILS The patient was brought to the Catheterization Lab in the postabsorptive nonsedated state. Informed consent was obtained prior to the procedure. Local anesthetic was given subcutaneously to the left upper chest area with Lidocaine 2%. Incision was made to the left upper chest. ICM Loop Recorder was inserted. Steri-strips applied to left subclavicular incision. The patient tolerated the procedure well. 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 Device Recommendations: Follow up with Primary Care Physician PROCEDURE MEDICATIONS Versed 1 mg IV Fentanyl 50 mcg IV Oxygen: 2 L/min via nasal cannula Antibiotic given in appropriate timeframe. Clindamycin 900 mg IV 07/06/2023 08:30:02 Signed By Donavan Lamb MD On 07/06/2023 09:04:04 Donavan Lamb MD
== END 2023-07-06 10:05 | disposition home or self-care (01) ==
PROVIDERS: PCP Nurse Practitioner Family; Referring Provider Internal Medicine Cardiovascular Disease; Visit Provider Internal Medicine Cardiovascular Disease
DX: R55 Syncope and collapse (principal); N18.30 Chronic kidney disease, stage 3 unspecified; E03.9 Hypothyroidism, unspecified; Z86.16 Personal history of COVID-19; Z79.899 Other long term (current) drug therapy; Z86.718 Personal history of other venous thrombosis and embolism; Z79.01 Long term (current) use of anticoagulants
CPT/HCPCS: 33285; 99152; 99153; J7040

== ENCOUNTER → 2023-08-14 | Outpatient (CLI) | payer MEDICARE, SELFPAY ==
--- NOTE | 2023-08-14 09:08 | BI_ITS ---
MAMMOGRAPHY - BILATERAL SCREENING REASON FOR EXAM: Female, 82 years old. Routine annual screening examination. PERTINENT HISTORY: Non-contributory. TECHNIQUE: Digital bilateral breast jax (3D mammographic acquisition) in the CC and MLO projections. 2-D mediolateral oblique (MLO) and craniocaudad (CC) views of both breasts were obtained. CAD: Full Field Digital Mammography with Computer Added Detection was performed. COMPARISON: Comparison is made with prior study dated May 25, 2020 and May 24, 2019. FINDINGS: Breast Composition: The breasts are almost entirely fatty. There are no dominant masses or suspicious calcifications. A loop recording device is seen in the deep inferior medial aspect of the left breast. No other significant abnormalities are identified. There has been no significant change since the prior study. BI/SCRN MAMM (CAD)W/JAX BILAT IMPRESSION: Stable bilateral screening mammogram. Yearly follow-up mammogram recommended. (A) ASSESSMENT CATEGORY: BIRADS Category 2: Benign. A letter regarding these results will be sent to the patient by the facility within 30 days. Approximately 10% of breast cancers are not detected by mammography. A normal mammogram should not delay biopsy of a clinically suspicious abnormality. [id number] Electronically Signed: Dawit Jensen MD at 10:45 EST ,
== END | disposition home or self-care (01) ==
LOC: OPBI 09:07
PROVIDERS: PCP Nurse Practitioner Family; Referring Provider Nurse Practitioner Family; Visit Provider Nurse Practitioner Family
DX: Z12.31 Encounter for screening mammogram for malignant neoplasm of breast (principal); Z95.818 Presence of other cardiac implants and grafts
CPT/HCPCS: 77063; 77067

== ENCOUNTER → 2023-10-19 | Outpatient (CLI) | payer MEDICARE, SELFPAY ==
--- NOTE | 2023-10-19 14:02 | NEURO ---
NCS and/or EMG Patient Report Ordering Doctor: JUS COPPOLA DATE OF SERVICE: 10/19/23 Clinical Summary: This is an 83 year old female patient presenting with symptoms of right lower extremity numbness, pain, and weakness. This EMG/NCS was performed to evaluate for right lumbosacral radiculopathy and peroneal mononeuropathy. Nerve Conduction Studies Summary: Nerve conduction studies performed in the right lower extremity were within normal ranges. Needle Examination Summary: Needle examination of select muscles of the right lower extremity was normal. Impression: This is a normal study. There is no electrodiagnostic evidence of a right lumbosacral radiculopathy or peroneal mononeuropathy. Multi Select Codes Neurology Neurology Interp Codes: 02091-01 Musc test done w/n test comp (interp) (1) and 69638-67 Nrv cndj tst 3-4 studies (interp)
== END | disposition home or self-care (01) ==
LOC: PSN 12:31
PROVIDERS: PCP Nurse Practitioner Family; Referring Provider Physician Assistant Medical; Visit Provider Physician Assistant Medical
DX: R29.898 Other symptoms and signs involving the musculoskeletal system (principal)
CPT/HCPCS: 95886; 95908

== ENCOUNTER → 2024-06-02 | Outpatient (CLI) | payer MEDICARE, SELFPAY ==
--- NOTE | 2024-06-02 09:46 | BD_ITS ---
STUDY: DUAL ENERGY X-RAY ABSORPTIOMETRY / DXA REASON FOR EXAM: Female, 83 years old. 627.8Menopausal postmenopausalBONE DENSITY REASON FOR EXAM -- Post-menopausal status TECHNIQUE: Bone Mineral Density (BMD) measurements of lumbar spine and bilateral hips were obtained. COMPARISON: Comparison is made with prior study May 20, 2022. FINDINGS: Lumbar Spine (L1-L4): g/cm2 (0.863) / T-score (-1.4) / Z-score (1.3) Findings are suggestive of osteopenia with a low fracture risk. Left Femur Total: g/cm2 (0.841) / T-score (-0.8) / Z-score (1.3) Left Femoral Neck: g/cm2 (0.684) / T-score (-1.5) / Z-score (0.9) Right Femur Total: g/cm2 (0.756) / T-score (-1.5) / Z-score (0.6) Right Femoral Neck: g/cm2 (0.700) / T-score (-1.3) / Z-score (1.0) The T-Scores on the most recent prior examination were: Lumbar Spine (L1-L4): There has been improvement of bone density since the previous examination. Left Femur Total: which represents a worsening of 0.9%. Right Femur Total: which represents a worsening of 1.6%. BD/Dexa Bone Density Study IMPRESSION: The patient is considered osteopenic as outlined below according to World Giles Organization (WHO) criteria with a low fracture risk. There has been worsening of bone density since the previous examination. Reference Information: The T-score is the number of standard deviations above or below the standard which is normal for young adults at their peak bone mineral density. The World Health Organization (WHO) interprets the T-scores as follows: Above -1 Normal bone density Between -1 and -2.5 Osteopenia Equal to / or below -2.5 Osteoporosis As a practical clinical guideline, osteopenia may be graded as follows: Mild -1 through -1.5 Moderate -1.6 through -2.0 Severe -2.1 through -2.4 The Z-score is the number of standard deviations above or below age-matched controls. A Z-score of less than -1.5 would be considered abnormal. References: 1. NIH Osteoporosis and Related Bone Diseases www osteo.org 2. International Society for Clinical Densitometry www iscd.org 3. National Osteoporosis Foundation www nof.org Electronically Signed: Dawit Jensen MD at 14:44 EDT ,
== END | disposition home or self-care (01) ==
LOC: OPBD 09:45
PROVIDERS: PCP Nurse Practitioner Family; Referring Provider Nurse Practitioner Family; Visit Provider Nurse Practitioner Family
DX: Z13.820 Encounter for screening for osteoporosis (principal); Z78.0 Asymptomatic menopausal state
CPT/HCPCS: 77080

== ENCOUNTER → 2024-06-09 | Outpatient (CLI) | payer MEDICARE, SELFPAY ==
--- NOTE | 2024-06-09 10:46 | VDLE_ITS ---
Reason For Study: DVT RIGHT LEFT GSV is normal. GSV is normal. CFV is compressible, spontaneous, phasic, CFV is compressible, spontaneous, phasic, competent and demonstrates normal competent, and demonstrates normal augmentation. augmentation. FV is compressible, spontaneous, phasic, FV is compressible, spontaneous, phasic, competent and demonstrates normal competent and demonstrates normal augmentation. augmentation. POP V is compressible, spontaneous, phasic, POP V is compressible, spontaneous, phasic, competent and demonstrates normal competent and demonstrates normal augmentation. augmentation. T/P Trunk is compressible. T/P Trunk is compressible. PTV is compressible. PTV is compressible. RT PerV is compressible. PeroV is partially compressible with bright Procedure intraluminal echoes consistent with Chronic This is a venous duplex using B-mode, color DVT. Venous flow noted. flow and spectral Doppler. Exam performed in department. Compared to 04/03/2023. A preliminary report was called and/or faxed to Joellen NOGUERA. 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 Deep veins of the right lower extremity are patent and compressible segmentally . There is no evidence of right lower extremity deep vein thrombosis. The bilateral great sap henous veins appear patent and compressible segmentally. Ordering Physician: Joellen Duffy Referring Physician: Joellen Duffy Performed By: Wendy Holbrook RVT
== END | disposition home or self-care (01) ==
LOC: CVS 10:46
PROVIDERS: PCP Nurse Practitioner Family; Referring Provider Nurse Practitioner Family; Visit Provider Nurse Practitioner Family
DX: I82.452 Acute embolism and thrombosis of left peroneal vein (principal)
CPT/HCPCS: 93970

== ENCOUNTER → 2024-10-20 | Outpatient (CLI) | payer MEDICARE, SELFPAY ==
--- NOTE | 2024-10-20 10:16 | BI_ITS ---
MAMMOGRAPHY - BILATERAL SCREENING REASON FOR EXAM: Female, 84 years old. Routine annual screening examination. PERTINENT HISTORY: Non-contributory. TECHNIQUE: Digital bilateral breast jax (3D mammographic acquisition) in the CC and MLO projections. 2-D mediolateral oblique (MLO) and craniocaudad (CC) views of both breasts were obtained. CAD: Full Field Digital Mammography with Computer Added Detection was performed. COMPARISON: Comparison is made with prior study dated August 14, 2023 and May 25, 2020. FINDINGS: Breast Composition: The breasts are almost entirely fatty. There are no dominant masses or suspicious calcifications. Loop recording device is once again seen in the deep inferior medial aspect of the left breast. No other significant abnormalities are identified. There has been no significant change since the prior study. BI/SCRN MAMM (CAD)W/JAX BILAT IMPRESSION: Stable bilateral screening mammogram. Yearly follow-up mammogram recommended. (A) ASSESSMENT CATEGORY: BIRADS Category 2: Benign. A letter regarding these results will be sent to the patient by the facility within 30 days. Approximately 10% of breast cancers are not detected by mammography. A normal mammogram should not delay biopsy of a clinically suspicious abnormality. [id number] Electronically Signed: Dawit Jensen MD at 11:12 EST ,
== END | disposition home or self-care (01) ==
LOC: OPBI 10:15
PROVIDERS: PCP Nurse Practitioner Family; Referring Provider Nurse Practitioner Family; Visit Provider Nurse Practitioner Family
DX: Z12.31 Encounter for screening mammogram for malignant neoplasm of breast (principal)
CPT/HCPCS: 77063; 77067

== ENCOUNTER → 2024-11-04 | Outpatient (CLI) | payer MEDICARE, SELFPAY ==
--- NOTE | 2024-11-04 12:45 | CT_ITS ---
PROCEDURE: Noncontrast CT of the left lower extremity ([place]by protocol). REASON FOR EXAM: Left knee osteoarthritis. Preoperative evaluation. TECHNIQUE: Contiguous unenhanced axial CT images were obtained through the left hip, knee, and ankle. Sagittal and coronal reformats were created. COMPARISON: None available FINDINGS: The proximal femurs are intact. Mild degenerative changes in the hip joints. The included portions of the pelvis are intact. Moderate degenerative change of the pubic symphysis. No pelvic mass or adenopathy. Moderate sigmoid diverticulosis. The uterus appears to be present. Small fat containing right inguinal hernia. No soft tissue mass or drainable fluid collection of the left knee. Bones are osteopenic. No acute fracture or dislocation of the left knee. Tiny joint effusion. There are moderate/severe degenerative changes of the medial and lateral compartments, to a moderate degree involving the patellofemoral compartment. Mild chondrocalcinosis of the medial and lateral compartments. No sizable popliteal cyst. Images through the left ankle are unremarkable. CT/Extremity Lower without Contra IMPRESSION: Osteopenia. No acute bony abnormality of the left hip, knee, or ankle. Moderate/severe tricompartmental degenerative changes of the left knee as above . Tiny left knee effusion. Moderate sigmoid diverticulosis. Small fat containing right inguinal hernia. One or more dose reduction techniques were used (e.g., Automated exposure contr ol, adjustment of the mA and/or kV according to patient size, use of iterative reconstruction technique). [facility]
[2024-11-04 13:28] LABS: Absolute Lymphocyte Count 0.92 X10^3/uL (0.83-4.51); Absolute Neutrophil Count 4.5 X10^3/uL (2.0-7.7); Basophil# 0.04 X10^3/uL; Basophil% 0.7 % (0-1); Eosinophil# 0.09 X10^3/uL; Eosinophils% 1.5 % (0-5); Hematocrit 41.8 % (37-47); Hemoglobin 13.9 g/dL (12.0-15.0); Lymphocyte # 0.92 X10^3/ul (0.83-4.51); Lymphocyte % 15.1 % (19-41); Mean Corp Hgb Conc 33.3 g/dL (32-36); Mean Corpuscular Hgb 30.9 pg (27.0-32.0); Mean Corpuscular Volume 92.9 fL (81-99); Mean Platelet Vol. 11.1 fl (6.2-12.0); Monocyte# 0.54 X10^3/uL; Monocyte% 8.8 % (0-10); NRBC Flagged by Analyzer 0 % (0-5); Neutrophil # 4.51 X10^3/uL (2.7-7.7); Neutrophil % 73.7 % (47-70); Platelet Count 180 K/mm3 (150-450); RBC Distribution Width CV 13.7 % (11.6-14.6); RBC Distribution Width SD 46.5 fl (35.1-43.9); White Blood Count 6.1 K/mm3 (4.4-11.0)
[2024-11-04 14:02] LABS: Albumin, Serum 3.7 g/dL (3.2-5.0); Anion Gap 6 (5-15); BUN 19 mg/dL (7-18); BUN/Creat Ratio 19.9 RATIO (10-20); Calcium,Total 9.3 mg/dL (8.5-10.1); Chloride 104 mmol/L (98-107); Creatinine, Serum 0.96 mg/dL (0.55-1.02); EST Glomerular Filtration Rate 59 mL/min (>60); Est Glom Filt Rate - Afr Amer 72 mL/min (>60); Glucose 110 mg/dL (74-106); Magnesium 2.1 mg/dL (1.6-2.6); Sodium Level 139 mmol/L (136-145)
== END | disposition home or self-care (01) ==
PROVIDERS: PCP Nurse Practitioner Family; Referring Provider Specialist; Visit Provider Specialist
DX: Z01.818 Encounter for other preprocedural examination (principal); M17.0 Bilateral primary osteoarthritis of knee; M94.262 Chondromalacia, left knee; M21.162 Varus deformity, not elsewhere classified, left knee; E03.9 Hypothyroidism, unspecified
CPT/HCPCS: 36415; 73700; 80048; 82040; 83735; 84443; 85025; 87081

== ENCOUNTER 2024-11-28 07:07 | Observation (INO) | payer MEDICARE, SELFPAY ==
--- NOTE | 2024-11-07 08:04 | EKG12_ITS ---
Test Reason : PRE OP Blood Pressure : */* mmHG Vent. Rate : 84 BPM Atrial Rate : 84 BPM P-R Int : 160 ms QRS Dur : 86 ms QT Int : 396 ms P-R-T Axes : 63 -21 58 degrees QTcB Int : 467 ms Normal sinus rhythm Normal ECG Confirmed by Griffin Scanlon ([id number]), editor producer LUIS E BAHENA ([id number]) on 11/07/2024 11:13:37 AM Referred By: Yevgeniy Pal Confirmed By: Griffin Scanlon
--- NOTE | 2024-11-07 10:36 | PAT.ANESEVAL ---
Pre-Assessment Diagnosis/Proposed Procedure Planned Operative Procedure(s): (L) ERAS, Total Knee Replacement Robotic Arm Assist Anesthesia History Anesthesia History - manager location: Anesthesia History - manager location Hx Hospitalization No 11/02/24 11:03 Any Problems With Anesthesia No 11/02/24 11:03 Cholinesterase deficiency No 11/02/24 11:03 You/Your Family Experience No 11/02/24 11:03 fever (hyperthermia) with Relationship Recent Exposure to Contagious Disease Does patient have nerve No 11/02/24 11:03 stimulator Patient instructed to have device shut off --Does patient have Pacemaker or ICD? When Was Last Pacemaker Check QUESTION #4 FULL TEXT: You/Your Family Experience fever (hyperthermia) with Anesthesia Last Oral Intake Last Oral intake: Last Oral Intake NPO since Meds taken in AM with sips of water? Meds patient instructed to take am of surgery PONV PONV - manager location: PONV - manager location Female Yes 11/02/24 11:03 HX of Motion Sickness Yes 11/02/24 11:03 HX of N/V After Surgery No 11/02/24 11:03 Non-Smoker Yes 11/02/24 11:03 Duration of Surgery greater Yes 11/02/24 11:03 than 60 minutes Number of Risk Factors 4 11/02/24 11:03 PONV Score Severe Risk 11/02/24 11:03 Height & Weight Height & Weight: Anesthesia: Height & Weight Height 5 ft 1 in 12/09/23 10:14 Respiratory Assessment Respiratory Assessment - manager location: Respiratory Tract Infection Hx - manager location Hx Respiratory Tract Infection Yes: just getting over cold 11/02/24 11:03 11/02/24 STOP Sleep Apnea STOP Sleep Apnea - manager location: STOP Sleep Apnea - manager location Hx Hypertension Yes: controlled with med 11/02/24 11:03 Hx Sleep Apnea No 11/02/24 11:03 CPAP BIPAP Do you snore loudly (louder No 11/02/24 11:03 than talking or can be heard Do you often feel tired/ No 11/02/24 11:03 fatigued/ sleepy during daytime? Has anyone observed you stop No 11/02/24 11:03 breathing during sleep? STOP Results Negative 11/02/24 11:03 QUESTION #5 FULL TEXT : Do you snore loudly (louder than talking or can be heard through closed doors)? 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 Specify any problems Hx of Preganancy in last 3 N/A 11/02/24 11:03 Months Nurse Filling Out Transfusion [facility]BU[facility] 11/02/24 11:03 & Questions: Date: 11/02/24 11/02/24 11:03 Time: 11:11/02/24 11:03 Patient unable to answer at this time (ie. confused, unrespo /Reproduction History /Reproductive History - manager location: /Reproductive Hx- manager location Hx Now Gestational Age (in weeks): EDC: Hx Hx Para Hx Section SAB PFSH Medical History (Updated 11/02/24 @ 11:11 by Ceci Whitley) Wears glasses Depression Thyroid disease Arthritis DVT (deep venous thrombosis) Near syncope History of diverticulitis Shortness of breath on exertion Non-smoker Leg cramps History of Holter monitoring History of echocardiogram History of stress test Implantable loop recorder present Cardiology follow-up encounter Stress incontinence IBS (irritable bowel syndrome) Diverticulosis DDD (degenerative disc disease) Dizziness Syncope Pneumothorax, right Closed fracture of multiple ribs Cardiomegaly COVID Psoriasis Metabolic syndrome Hyponatremia Depressive disorder Vitamin D deficiency Cervical arthritis Hyperlipidemia Chest pressure CKD (chronic kidney disease) stage 3, GFR 30-59 ml/min MTHFR gene mutation Hypothyroid Fall History of DVT (deep vein thrombosis) BMI 37.0-37.9, adult Osteopenia Injury of elbow, left Acid reflux Postmenopausal Gait disturbance Presbyesophagus Hypothyroidism Hypertensive urgency Accelerated hypertension Home Medications ?Medication ?Instructions ?Recorded ?Last Taken ?Type amlodipine 5 mg tablet 2.5 mg PO DAILY 05/21/23 Unknown History calcipotriene-betamethasone 0.005 1 applic topical DAILY 05/21/23 Unknown History %-0.064 % topical suspension (Taclonex) cholecalciferol (vitamin D3) 50 50 mcg PO DAILY 05/21/23 Unknown History mcg (2,000 unit) capsule citalopram 20 mg tablet 20 mg PO DAILY 05/21/23 Unknown History folic acid 400 mcg tablet 0.4 mg PO DAILY 05/21/23 Unknown History ibandronate 150 mg tablet 150 mg PO QMONTH 05/21/23 Unknown History levothyroxine 100 mcg tablet 100 mcg PO MOTUWETHFRSA 06/10/23 Unknown History (Synthroid) Lactobacillus acidophilus 10 100 mmu cells PO DAILY 11/02/24 Unknown History billion cell capsule (Probiotic) calcium 100 mg capsule 100 mg PO DAILY 11/02/24 Unknown History Allergy/AdvReac Type Severity Reaction Status Date / Time diphenhydramine (From Allergy Angioedema Verified 11/02/24 11:00 Benadryl) prednisone Allergy Angioedema Verified 11/02/24 11:00 Sulfa (Sulfonamide Allergy Hives Verified 11/02/24 11:00 Antibiotics) amoxicillin (From Augmentin) AdvReac Nausea/Vom/ Verified 11/02/24 11:00 Diarrhea clavulanic acid (From AdvReac Nausea/Vom/ Verified 11/02/24 11:00 Augmentin) Diarrhea Family History Father Hypertension Myocardial infarction Aortic aneurysm Mother Hypertension Brain aneurysm Brother Aortic aneurysm Sister Thyroid disorder DVT (deep venous thrombosis) Hypertension Daughter Pulmonary embolism Thyroid disorder Grandmother Diabetes Surgical History (Updated 11/02/24 @ 11:11 by Ceci Whitley) History of tonsillectomy H/O cataract extraction Hx of arthroscopy of right knee History of carpal tunnel release of both wrists Social History Smoking Status: Never smoker alcohol intake: never substance use type: does not use caffeine: Yes Type: coffee Number of servings: 4 and tea Audit: Pertinent Findings Pertinent Findings EKG Perinent findings: 06/10/23 nsr, lad Consult pertinent findings: cardio 12/09/23. Sncope. no further symptoms. prior work up all negative Recommendation Anesthesia Recommendation Anesthesia recommendation: OPTIMIZED for anesthesia
--- NOTE | 2024-11-08 15:53 | PAT.ANESEVAL ---
Pre-Assessment Diagnosis/Proposed Procedure Planned Operative Procedure(s): (L) ERAS, Total Knee Replacement Robotic Arm Assist Anesthesia History Anesthesia History - dual rate dealer: Anesthesia History - dual rate dealer Hx Hospitalization No 11/02/24 11:03 Any Problems With Anesthesia No 11/02/24 11:03 Cholinesterase deficiency No 11/02/24 11:03 You/Your Family Experience No 11/02/24 11:03 fever (hyperthermia) with Relationship Recent Exposure to Contagious Disease Does patient have nerve No 11/02/24 11:03 stimulator Patient instructed to have device shut off --Does patient have Pacemaker or ICD? When Was Last Pacemaker Check QUESTION #4 FULL TEXT: You/Your Family Experience fever (hyperthermia) with Anesthesia Last Oral Intake Last Oral intake: Last Oral Intake NPO since Meds taken in AM with sips of water? Meds patient instructed to take am of surgery PONV PONV - dual rate dealer: PONV - dual rate dealer Female Yes 11/02/24 11:03 HX of Motion Sickness Yes 11/02/24 11:03 HX of N/V After Surgery No 11/02/24 11:03 Non-Smoker Yes 11/02/24 11:03 Duration of Surgery greater Yes 11/02/24 11:03 than 60 minutes Number of Risk Factors 4 11/02/24 11:03 PONV Score Severe Risk 11/02/24 11:03 Height & Weight Height & Weight: Anesthesia: Height & Weight Height 5 ft 1 in 12/09/23 10:14 Respiratory Assessment Respiratory Assessment - dual rate dealer: Respiratory Tract Infection Hx - dual rate dealer Hx Respiratory Tract Infection Yes: just getting over cold 11/02/24 11:03 11/02/24 STOP Sleep Apnea STOP Sleep Apnea - dual rate dealer: STOP Sleep Apnea - dual rate dealer Hx Hypertension Yes: controlled with med 11/02/24 11:03 Hx Sleep Apnea No 11/02/24 11:03 CPAP BIPAP Do you snore loudly (louder No 11/02/24 11:03 than talking or can be heard Do you often feel tired/ No 11/02/24 11:03 fatigued/ sleepy during daytime? Has anyone observed you stop No 11/02/24 11:03 breathing during sleep? STOP Results Negative 11/02/24 11:03 QUESTION #5 FULL TEXT : Do you snore loudly (louder than talking or can be heard through closed doors)? 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 Specify any problems Hx of Preganancy in last 3 N/A 11/02/24 11:03 Months Nurse Filling Out Transfusion [facility] 11/02/24 11:03 & Questions: Date: 11/02/24 11/02/24 11:03 Time: 11:11/02/24 11:03 Patient unable to answer at this time (ie. confused, unrespo /Reproduction History /Reproductive History - dual rate dealer: /Reproductive Hx- dual rate dealer Hx Now Gestational Age (in weeks): EDC: Hx Hx Para Hx Section SAB PFSH Medical History (Updated 11/02/24 @ 11:11 by Ceci Whitley) Wears glasses Depression Thyroid disease Arthritis DVT (deep venous thrombosis) Near syncope History of diverticulitis Shortness of breath on exertion Non-smoker Leg cramps History of Holter monitoring History of echocardiogram History of stress test Implantable loop recorder present Cardiology follow-up encounter Stress incontinence IBS (irritable bowel syndrome) Diverticulosis DDD (degenerative disc disease) Dizziness Syncope Pneumothorax, right Closed fracture of multiple ribs Cardiomegaly COVID Psoriasis Metabolic syndrome Hyponatremia Depressive disorder Vitamin D deficiency Cervical arthritis Hyperlipidemia Chest pressure CKD (chronic kidney disease) stage 3, GFR 30-59 ml/min MTHFR gene mutation Hypothyroid Fall History of DVT (deep vein thrombosis) BMI 37.0-37.9, adult Osteopenia Injury of elbow, left Acid reflux Postmenopausal Gait disturbance Presbyesophagus Hypothyroidism Hypertensive urgency Accelerated hypertension Home Medications ?Medication ?Instructions ?Recorded ?Last Taken ?Type amlodipine 5 mg tablet 2.5 mg PO DAILY 05/21/23 Unknown History calcipotriene-betamethasone 0.005 1 applic topical DAILY 05/21/23 Unknown History %-0.064 % topical suspension (Taclonex) cholecalciferol (vitamin D3) 50 50 mcg PO DAILY 05/21/23 Unknown History mcg (2,000 unit) capsule citalopram 20 mg tablet 20 mg PO DAILY 05/21/23 Unknown History folic acid 400 mcg tablet 0.4 mg PO DAILY 05/21/23 Unknown History ibandronate 150 mg tablet 150 mg PO QMONTH 05/21/23 Unknown History levothyroxine 100 mcg tablet 100 mcg PO MOTUWETHFRSA 06/10/23 Unknown History (Synthroid) Lactobacillus acidophilus 10 100 mmu cells PO DAILY 11/02/24 Unknown History billion cell capsule (Probiotic) calcium 100 mg capsule 100 mg PO DAILY 11/02/24 Unknown History Allergy/AdvReac Type Severity Reaction Status Date / Time diphenhydramine (From Allergy Angioedema Verified 11/02/24 11:00 Benadryl) prednisone Allergy Angioedema Verified 11/02/24 11:00 Sulfa (Sulfonamide Allergy Hives Verified 11/02/24 11:00 Antibiotics) amoxicillin (From Augmentin) AdvReac Nausea/Vom/ Verified 11/02/24 11:00 Diarrhea clavulanic acid (From AdvReac Nausea/Vom/ Verified 11/02/24 11:00 Augmentin) Diarrhea Family History Father Hypertension Myocardial infarction Aortic aneurysm Mother Hypertension Brain aneurysm Brother Aortic aneurysm Sister Thyroid disorder DVT (deep venous thrombosis) Hypertension Daughter Pulmonary embolism Thyroid disorder Grandmother Diabetes Surgical History (Updated 11/02/24 @ 11:11 by Ceci Whitley) History of tonsillectomy H/O cataract extraction Hx of arthroscopy of right knee History of carpal tunnel release of both wrists Social History Smoking Status: Never smoker alcohol intake: never substance use type: does not use caffeine: Yes Type: coffee Number of servings: 4 and tea Audit: Pertinent Findings HISTORY of Pertinent Findings History of Pertinent Findings: EKG Pertinent Findings EKG Perinent findings 06/10/23 nsr, lad 11/07/24 10:38 Consult Pertinent Findings Consult pertinent findings cardio 12/09/23. Sncope. no 11/07/24 10:38 further symptoms. prior work up all negative Recommendation Anesthesia Recommendation Anesthesia recommendation: F/U recommended (Notice to surgery. Patient's TSH is 12.2. Please note that levels greater than 8 have a higher incidence of postoperative infection and poor wound healing.)
--- NOTE | 2024-11-09 10:04 | PAT.ANE_ITS ---
Pre-Assessment Diagnosis/Proposed Procedure Planned Operative Procedure(s): (L) ERAS, Total Knee Replacement Robotic Arm Assist Anesthesia History Anesthesia History - probation manager: Anesthesia History - probation manager Hx Hospitalization No 11/02/24 11:03 Any Problems With Anesthesia No 11/02/24 11:03 Cholinesterase deficiency No 11/02/24 11:03 You/Your Family Experience No 11/02/24 11:03 fever (hyperthermia) with Relationship Recent Exposure to Contagious Disease Does patient have nerve No 11/02/24 11:03 stimulator Patient instructed to have device shut off --Does patient have Pacemaker or ICD? When Was Last Pacemaker Check QUESTION #4 FULL TEXT: You/Your Family Experience fever (hyperthermia) with Anesthesia Last Oral Intake Last Oral intake: Last Oral Intake NPO since Meds taken in AM with sips of water? Meds patient instructed to take am of surgery PONV PONV - probation manager: PONV - probation manager Female Yes 11/02/24 11:03 HX of Motion Sickness Yes 11/02/24 11:03 HX of N/V After Surgery No 11/02/24 11:03 Non-Smoker Yes 11/02/24 11:03 Duration of Surgery greater Yes 11/02/24 11:03 than 60 minutes Number of Risk Factors 4 11/02/24 11:03 PONV Score Severe Risk 11/02/24 11:03 Height & Weight Height & Weight: Anesthesia: Height & Weight Height 5 ft 1 in 12/09/23 10:14 Respiratory Assessment Respiratory Assessment - probation manager: Respiratory Tract Infection Hx - probation manager Hx Respiratory Tract Infection Yes: just getting over cold 11/02/24 11:03 11/02/24 STOP Sleep Apnea STOP Sleep Apnea - probation manager: STOP Sleep Apnea - probation manager Hx Hypertension Yes: controlled with med 11/02/24 11:03 Hx Sleep Apnea No 11/02/24 11:03 CPAP BIPAP Do you snore loudly (louder No 11/02/24 11:03 than talking or can be heard Do you often feel tired/ No 11/02/24 11:03 fatigued/ sleepy during daytime? Has anyone observed you stop No 11/02/24 11:03 breathing during sleep? STOP Results Negative 11/02/24 11:03 QUESTION #5 FULL TEXT : Do you snore loudly (louder than talking or can be heard through closed doors)? 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 Specify any problems Hx of Preganancy in last 3 N/A 11/02/24 11:03 Months Nurse Filling Out Transfusion [facility] 11/02/24 11:03 & Questions: Date: 11/02/24 11/02/24 11:03 Time: 11:11/02/24 11:03 Patient unable to answer at this time (ie. confused, unrespo /Reproduction History /Reproductive History - probation manager: /Reproductive Hx- probation manager Hx Now Gestational Age (in weeks): EDC: Hx Hx Para Hx Section SAB PFSH Medical History (Updated 11/02/24 @ 11:11 by Ceci Whitley) Wears glasses Depression Thyroid disease Arthritis DVT (deep venous thrombosis) Near syncope History of diverticulitis Shortness of breath on exertion Non-smoker Leg cramps History of Holter monitoring History of echocardiogram History of stress test Implantable loop recorder present Cardiology follow-up encounter Stress incontinence IBS (irritable bowel syndrome) Diverticulosis DDD (degenerative disc disease) Dizziness Syncope Pneumothorax, right Closed fracture of multiple ribs Cardiomegaly COVID Psoriasis Metabolic syndrome Hyponatremia Depressive disorder Vitamin D deficiency Cervical arthritis Hyperlipidemia Chest pressure CKD (chronic kidney disease) stage 3, GFR 30-59 ml/min MTHFR gene mutation Hypothyroid Fall History of DVT (deep vein thrombosis) BMI 37.0-37.9, adult Osteopenia Injury of elbow, left Acid reflux Postmenopausal Gait disturbance Presbyesophagus Hypothyroidism Hypertensive urgency Accelerated hypertension Home Medications ?Medication ?Instructions ?Recorded ?Last Taken ?Type amlodipine 5 mg tablet 2.5 mg PO DAILY 05/21/23 Unk nown History calcipotriene-betamethasone 0.005 1 applic topical OLIVA LY 05/21/23 Unknown History %-0.064 % topical suspension (Taclonex) cholecalciferol (vitamin D3) 50 50 mcg PO DAILY Unknown History mcg (2,000 unit) capsule citalopram 20 mg tablet 20 mg PO DAILY 05/21/23 Unkn own History folic acid 400 mcg tablet 0.4 mg PO DAILY 05/21/23 Unk nown History ibandronate 150 mg tablet 150 mg PO QMONTH 05/21/23 Un known History levothyroxine 100 mcg tablet 100 mcg PO MOTUWETHFRSA 0 06/10/23 Unknown History (Synthroid) Lactobacillus acidophilus 10 100 mmu cells PO DAILY Unknown History billion cell capsule (Probiotic) calcium 100 mg capsule 100 mg PO DAILY 11/02/24 Unk nown History Allergy/AdvReac Type Severity Reaction Status Date / Time diphenhydramine (From Allergy Angioedema Verified 11/02/24 11:00 Benadryl) prednisone Allergy Angioedema Verified 11/02/24 11:00 Sulfa (Sulfonamide Allergy Hives Verified 11/02/24 11:00 Antibiotics) amoxicillin (From Augmentin) AdvReac Nausea/Vom/ Verified 11/02/24 11:00 Diarrhea clavulanic acid (From AdvReac Nausea/Vom/ Verified 11/02/24 11:00 Augmentin) Diarrhea Family History Father Hypertension Myocardial infarction Aortic aneurysm Mother Hypertension Brain aneurysm Brother Aortic aneurysm Sister Thyroid disorder DVT (deep venous thrombosis) Hypertension Daughter Pulmonary embolism Thyroid disorder Grandmother Diabetes Surgical History (Updated 11/02/24 @ 11:11 by Ceci Whitley) History of tonsillectomy H/O cataract extraction Hx of arthroscopy of right knee History of carpal tunnel release of both wrists Social History Smoking Status: Never smoker alcohol intake: never substance use type: does not use caffeine: Yes Type: coffee Number of servings: 4 and tea Audit: Pertinent Findings HISTORY of Pertinent Findings History of Pertinent Findings: EKG Pertinent Findings EKG Perinent findings 06/10/23 nsr, lad 11/07/24 10:38 Consult Pertinent Findings Consult pertinent findings cardio 3/13/24. Sncope. no 11/07/24 10:38 further symptoms. prior work up all negative Pertinent Findings EKG Perinent findings: 11/07/2024 normal EKG Echo (EF%) pertinent findings: 05/22/2020 EF 55% PA pressure 29 mmHg Additional pertinent findings: TSH 12.2 lab 11/04/2024 this value sent to surgeon for optimization Recommendation Anesthesia Recommendation Anesthesia recommendation: OPTIMIZED for anesthesia
--- NOTE | 2024-11-24 08:12 | HP.PCM_ITS ---
History and Physical Patient Name: Elizabeth MonzonB: 1940 From: DATE OF PRE-OPERATIVE EXAM: 11/21/2024 DATE OF SURGERY: 11/28/2024 SCHEDULED PROCEDURE: Robotic assisted left total knee arthroplasty. HISTORY OF PRESENT ILLNESS: Patient is an 84-year-old female presenting for preop visit. Patient states that she has had left knee pain for 9 to 12 months. Patient states that her pain is described as constant, intermittent, sharp, aching, sore, burning. The patient presents with left knee pain, currently rated as a 4 out of 10, but has experienced pain levels up to 9 out of 10. The pain is exacerbated by walking and finding a comfortable position to sleep in. Patient states that the pain is worse with stairs. The patient reports difficulty walking through a store, only managing a couple of aisles, and experiences problems with stairs at home. The pain is primarily located in the whole knee, with the worst part being along the inside. Patient states that the pain is better with sitting, resting, elevating the leg, walking, and icing. Patient states that she is no longer able to do housework and shopping due to the left knee. Patient states that she feels unsafe doing excess walking due to the pain. Patient states that she has tried rest, ice, elevation, compression, chiropractor, and gel injections with help. Patient states that she tried cortisone injection, oral medications with no help. Patient states that she has not tried weight loss, physical therapy. The patient has a history of cortisone injections, which provided only 2 days of relief and caused a reaction, including a headache for four days and redness on the face and chest. The patient has tried Icy Hot for pain relief, but it irritates their skin. They currently take Tylenol every night for pain management. Patient denies any previous surgeries on the joint. Patient states that she has had to walk with a cane due to this pain. REVIEW OF SYSTEMS: Review Of Systems: Constitutional: Denies anorexia, anxiety, change in appetite, fever and weight change,hard of hearing, and vision problems. Cardiovasular: Denies chest pain, heart murmur, irregular heartbeat and peripheral vascular disease. Respiratory: Reports cough and shortness of breath, but denies asthma, pneumonia, sleep apnea, tuberculosis and wheezing. Gastrointestinal: Reports diarrhea, nausea. Denies constipation, heartburn, bloody stools and vomiting, and difficulty swallowing. Genitourinary: . (F Genital Sx) Reports incontinence. Musculoskeletal: Reports leg swelling and pain but denies trouble walking and weakness and limp. Skin: Denies Raynaud's, history of shingles and tattoo. Neurological: Reports ambulatory dysfunction but denies dizziness, numbness/tingling and tremor. Psychiatric: Reports stress, but denies anxiety, depression, insomnia and mental illness. Hematologic/Lymphatic: Reports bleeding/bruising tendency, but denies anemia and past transfusion. Reviewed, no changes. PAST MEDICAL HISTORY: Advance Care Plan: Other Directive, LIVING WILL Effective Date: 04/07/2024 Past Medical History: Medical Problems: Arthritis, Thyroid Disease, High Blood Pressure, History Of Blood Clots/ DVT, Covid- 19 Accidents: Fracture - 3 ribs 2022 lung and liver bruising Surgical Hx: Tonsillectomy - (1950) [place] Arthroscopy - (2003) [facility] Carpal Tunnel - (1980) 1984-[facility] Anesthesia Complications: None Assistive Devices: Glasses Reviewed, no changes. 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 Personal Habits: Cigarette Use: Never.Smokeless Tobacco: Never Used Smokeless Tobacco.E-Cigarette Use: Never used.Alcohol: Denies use.Drug Use: Denies Use.Enjoy Exercising: Exercises 1-3 X/Week. Reviewed, no changes. VITALS: Ht: 61 Wt: 187lb Wt [id number] BMI: 35.3 BP: 132/80 Pulse: 79 Resp: 14 T: 97.3 T: 36.3C Pain Level: 6 O2SatR: 96 ALLERGIES: Sulfa Benadryl Prednisone MEDICATIONS: Levothyroxine Sodium 100 mcg, Citalopram Hydrobromide 20 mg, Amlodipine Besylate 2.5 mg, Ibandronate Sodium 150 mg, Vitamin D3 5000 Unit daily, Probiotic (Lactobacillus) two capsules once a day, Folic Acid 400 mcg daily PRE-OP EXAM: General appearance:NORMAL Other: Eyes: Conjunctivae and lids: NORMAL Pupils: ERR Ears, Nose, Mouth, and Throat: NORMAL Other: Inspection of lips, teeth and gums: NORMAL Other: Neck: Examination of neck: no masses noted. Respiratory: Assessment of respiratory effort: NORMAL Other: Auscultation of lungs: clear to auscultation no wheezes, rhonchi or rales. Cardiovascular: Auscultation of heart: regular rate and rhythm, no murmurs, gallops or rubs. Exam of carotid arteries: NORMAL Other: Gastrointestinal: Exam of abdomen: soft, nontender, nondistended bowel sounds present. Lymphatic: Palpation of nodes in neck: NORMAL Other: Palpation of nodes in Axillae: NORMAL Other: Neurological: see below Psychiatric: Orientation to time, place and person: NORMAL Other: Mood and affect: NORMAL Other: PHYSICAL EXAMINATION: Left Knee: - Pain: Primarily throughout, most severe along the medial joint line. - Tenderness: Exquisite over the medial joint line. - Range of Motion: 0-115 degrees. - Effusion: Moderate effusion noted. - Right Knee: - Pain: Less compared to the left knee. - Stability: 1mm MCL laxity, 1mm LCL laxity. IMAGING STUDIES: Previous left knee x-rays were reviewed. These include bilateral standing fi lms. Patient does have medial joint space narrowing however more mild to moderate in nature with some mild marginal osteophyte formation. Interestingly, patient also has findings consistent with severe medial compartment disease on the right. IMPRESSION: 1. Hypertension. 2. Acid reflux. 3. Cardiomegaly. 4. Cervical arthritis. 5. Chronic kidney disease stage III. 6. Degenerative joint disease. 7. Depressive disorder. 8. Diverticulosis. 9. History of DVT. 10. Hyperlipidemia. 11. Hyponatremia. 12. Hypothyroidism. 13. Irritable bowel syndrome. 14. MTHFR gene mutation. 15. Osteopenia. 16. Vitamin D deficiency. 17 bilateral osteoarthritis of knees. 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 19. Varus deformity left knee. 20. Repeated falls. PLAN: The surgeon did discuss and review all treatment options with the patient including surgical versus nonsurgical. At this time the patient does wish to proceed with the above-stated procedure. Potential risks benefits and complications of the procedure were discussed and reviewed with the patient including but not limited to , infection, nerve and blood vessel damage, persistent pain, numbness, tingling, paresthesias, blood clot, pulmonary embolism, in the requirement for possible further surgery. Patient expressed full understanding. Has no further questions for the doctor. Does agree to proceed with the above-stated procedure, and has signed the appropriate surgery consent form. DVT prophylaxis: Patient will be on Eliquis 2.5 mg twice daily following surgery. Patient will be on JOHN hose for 2 weeks postoperatively. Pain medications: Patient will be on Tylenol 1000 mg every 8 hours as well as oxycodone for breakthrough pain. Patient will be on famotidine for 30 days postoperatively. Patient will be on senna for as needed postoperative constipation. We will avoid NSAIDs due to GFR less than 60 and Eliquis postoperatively. ___ I have re-examined the patient. There are no clinical changes since date of exam. ___ See progress notes for changes. ___ Dictated on admission Date: Time: Signature:
[2024-11-28] VITALS (16 sets, daily range): BP systolic 93–150; BP diastolic 50–84; PULSE 57–88; RESP 16–18; TEMP 36.1–36.6; O2SAT 94–100
[2024-11-28] MEDS: Acetaminophen 500 MG Tablet 1000 MG PO ×3 (06:05→21:10)
[2024-11-28] MEDS: Gabapentin 600 MG Tablet PO (06:06)
[2024-11-28] MEDS: Lactated Ringers 1,000 ML 999 ML IV (06:21)
[2024-11-28] MEDS: Magnesium 1 GM over 15 mins IV (06:22)
[2024-11-28] MEDS: Lactated Ringers 1,000 ML 75 ML IV ×2 (06:23→17:20)
--- NOTE | 2024-11-28 06:53 | PRE.ANES_ITS ---
ASA Classification* ASA Classification ASA Classification: 3 Assessment & Plan Anesthesia* Anesthesia Assessment Anesthesia Assessment: Discussed sedation and/or anesthesia options, risks, benefits, and alternatives with patient/parents/legal guardian/POA. Questions invited. The patient/parents/legal guardian/POA seems to understand and agrees to proceed with anesthesia plan. Reviewed the physical assessment, medical history, allergy history and patient home medications list prior to surgery/procedure/anesthetic and documented any changes. Performed airway and anesthesia risk assessments. Anesthesia Type Anesthesia Type: Spinal and Block Anesthesia Focused Assessment* Temperature: 97.6 F Pulse Rate: 80 Blood Pressure: 150/84 Respiratory Rate: 16 Pulse Ox: 97 Airway Assessment Mouth opens: >3 cm Mallampati Score: II Focused Labs Anesthesia Preop lab: CBC WBC 6.1 K/mm3 (4.4-11.0) 11/04/24 13:17 11/04/24 RBC 4.50 M/mm3 (4.2-5.4) 11/04/24 13:17 11/04/24 Hgb 13.9 g/dL (12.0-15.0) 11/04/24 13:17 11/04/24 Hct 41.8 % (37-47) 11/04/24 13:17 11/04/24 Plt Count 180 K/mm3 (150-450) 11/04/24 13:17 11/04/24 CHEMISTRY Potassium 4.0 mmol/L (3.5-5.1) 11/04/24 13:17 11/04/24 Sodium 139 mmol/L (136-145) 11/04/24 13:17 11/04/24 Magnesium 2.1 mg/dL (1.6-2.6) 11/04/24 13:17 11/04/24 BUN 19 mg/dL (7-18) H 11/04/24 13:17 11/04/24 Creatinine 0.96 mg/dL (0.55-1.02) 11/04/24 13:17 11/04/24 Glucose 110 mg/dL (74-106) H 11/04/24 13:17 11/04/24 TSH 12.200 uIU/mL (0.358-3.740) H 11/04/24 13:17 0 11/04/24 COAG Pre-Assessment Diagnosis/Proposed Procedure Planned Operative Procedure(s): (L) ERAS, Total Knee Replacement Robotic Arm Assist Anesthesia History Anesthesia History - independent living advisor: Anesthesia History - independent living advisor Hx Hospitalization No 11/02/24 11:03 Any Problems With Anesthesia No 11/02/24 11:03 Cholinesterase deficiency No 11/02/24 11:03 You/Your Family Experience No 11/02/24 11:03 fever (hyperthermia) with Relationship Recent Exposure to Contagious No 11/28/24 05:57 Disease Does patient have nerve No 11/02/24 11:03 stimulator Patient instructed to have device shut off --Does patient have Pacemaker No 11/28/24 05:59 or ICD? When Was Last Pacemaker Check QUESTION #4 FULL TEXT: You/Your Family Experience fever (hyperthermia) with Anesthesia Last Oral Intake Last Oral intake: Last Oral Intake NPO since 03:30 11/28/24 05:59 Meds taken in AM with sips of No 11/28/24 05:59 water? Meds patient instructed to take am of surgery PONV PONV - independent living advisor: PONV - independent living advisor Female Yes 11/02/24 11:03 HX of Motion Sickness Yes 11/02/24 11:03 HX of N/V After Surgery No 11/02/24 11:03 Non-Smoker Yes 11/02/24 11:03 Duration of Surgery greater Yes 11/02/24 11:03 than 60 minutes Number of Risk Factors 4 11/02/24 11:03 PONV Score Severe Risk 11/02/24 11:03 Height & Weight Height & Weight: Anesthesia: Height & Weight Height 51 ft 11/28/24 05:59 Weight: 84.55 kg 11/28/24 05:59 Body Mass Index (BMI) 0.3 11/28/24 05:59 Respiratory Assessment Respiratory Assessment - independent living advisor: Respiratory Tract Infection Hx - independent living advisor Hx Respiratory Tract Infection Yes: just getting over cold 11/02/24 11:03 11/02/24 STOP Sleep Apnea STOP Sleep Apnea - independent living advisor: STOP Sleep Apnea - independent living advisor Hx Hypertension Yes: controlled with med 11/02/24 11:03 Hx Sleep Apnea No 11/02/24 11:03 CPAP BIPAP Do you snore loudly (louder No 11/02/24 11:03 than talking or can be heard Do you often feel tired/ No 11/02/24 11:03 fatigued/ sleepy during daytime? Has anyone observed you stop No 11/02/24 11:03 breathing during sleep? STOP Results Negative 11/02/24 11:03 QUESTION #5 FULL TEXT : Do you snore loudly (louder than talking or can be heard through closed doors)? 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 Specify any problems Hx of Preganancy in last 3 N/A 11/02/24 11:03 Months Nurse Filling Out Transfusion NBUCHER 11/02/24 11:03 & Questions: Date: 11/02/24 11/02/24 11:03 Time: 11:05 11/02/24 11:03 Patient unable to answer at this time (ie. confused, unrespo /Reproduction History /Reproductive History - independent living advisor: /Reproductive Hx- independent living advisor Hx Now Gestational Age (in weeks): EDC: Hx Hx Para Hx Section SAB Active Medications Active Medications: Current Medications Generic Name Dose Route Start Last Admin Trade Name Freq PRN Reason Stop Dose Admin Acetaminophen 1,000 mg 11/28/24 07:30 11/28/24 06:05 Acetaminophen 500 Mg Tablet PO 11/28/24 07:31 1,000 mg X1 ONE Administration Tranexamic Acid 1,000 mg/ 0 mg 11/28/24 07:30 Sodium Chloride 100 ml OPERA.SITE 11/28/24 07:31 X1 ONE Sodium Chloride 78.4 ml/ 0 ml 11/28/24 07:30 Ropivacaine 200 mg/ IV 11/28/24 07:31 Epinephrine HCl 0.6 mg/ X1 ONE Morphine Sulfate 5 mg Gabapentin 600 mg 11/28/24 07:30 11/28/24 06:06 Gabapentin 600 Mg Tablet PO 11/28/24 07:31 600 mg X1 ONE Administration Magnesium Sulfate 1 gm/ 102 mls @ 408 mls/hr 11/28/24 07:30 11/28/24 06:22 Dextrose IV 11/28/24 07:44 408 mls/hr X1 ONE Administration Lactated Ringer's 1,000 mls @ 999 mls/hr 11/28/24 07:30 11/28/24 06:21 IV 11/28/24 08:30 999 mls/hr .[id number] JORGE Administration Cefazolin Sodium 2 gm/ N/A 20 mls @ 400 mls/hr 11/28/24 07:30 IV 11/28/24 07:32 PREOP ONE Lactated Ringer's 1,000 mls @ 75 mls/hr 11/28/24 05:30 11/28/24 06:23 IV 11/29/24 08:09 75 mls/hr .[id number] JORGE Administration Protocol Insulin Human Lispro 1 - 6 unit 11/28/24 07:30 Insulin Lispro 100 Unit/Ml Insuln.Pen SC 11/28/24 23:59 Q4H PRN PRN BG>/= 180, SEE PROTOCOL Protocol PFSH Medical History Wears glasses Depression Thyroid disease Arthritis DVT (deep venous thrombosis) Near syncope History of diverticulitis Shortness of breath on exertion Non-smoker Leg cramps History of Holter monitoring History of echocardiogram History of stress test Implantable loop recorder present Cardiology follow-up encounter Stress incontinence IBS (irritable bowel syndrome) Diverticulosis DDD (degenerative disc disease) Dizziness Syncope Pneumothorax, right Closed fracture of multiple ribs Cardiomegaly COVID Psoriasis Metabolic syndrome Hyponatremia Depressive disorder Vitamin D deficiency Cervical arthritis Hyperlipidemia Chest pressure CKD (chronic kidney disease) stage 3, GFR 30-59 ml/min MTHFR gene mutation Hypothyroid Fall History of DVT (deep vein thrombosis) BMI 37.0-37.9, adult Osteopenia Injury of elbow, left Acid reflux Postmenopausal Gait disturbance Presbyesophagus Hypothyroidism Hypertensive urgency Accelerated hypertension Home Medications ?Medication ?Instructions ?Recorded ?Last Taken ?Type amlodipine 5 mg tablet 2.5 mg PO DAILY 05/21/2311/22 History calcipotriene-betamethasone 0.005 1 applic topical OLIVA LY PRN rash 05/21/23 Unknown History %-0.064 % topical suspension (Taclonex) cholecalciferol (vitamin D3) 50 50 mcg PO DAILY 11/23/24 History mcg (2,000 unit) capsule citalopram 20 mg tablet 20 mg PO DAILY 05/21/23 03/11/22 History folic acid 400 mcg tablet 0.4 mg PO DAILY 05/21/23 History ibandronate 150 mg tablet 150 mg PO QMONTH 05/21/23 History levothyroxine 100 mcg tablet 100 mcg PO MOTUWETHFRSA 0 06/10/23 11/27/24 07:00 History (Synthroid) 200 mcg Lactobacillus acidophilus 10 100 mmu cells PO DAILY 11/23/24 History billion cell capsule (Probiotic) calcium 100 mg capsule 100 mg PO DAILY 11/02/24 History Allergy/AdvReac Type Severity Reaction Status Date / Time diphenhydramine (From Allergy Angioedema Verified 11/28/24 05:54 Benadryl) prednisone Allergy Angioedema Verified 11/28/24 05:54 Sulfa (Sulfonamide Allergy Hives Verified 11/28/24 05:54 Antibiotics) amoxicillin (From Augmentin) AdvReac Nausea/Vom/ Verified 11/28/24 05:54 Diarrhea clavulanic acid (From AdvReac Nausea/Vom/ Verified 11/28/24 05:54 Augmentin) Diarrhea Family History Father Hypertension Myocardial infarction Aortic aneurysm Mother Hypertension Brain aneurysm Brother Aortic aneurysm Sister Thyroid disorder DVT (deep venous thrombosis) Hypertension Daughter Pulmonary embolism Thyroid disorder Grandmother Diabetes Surgical History History of tonsillectomy H/O cataract extraction Hx of arthroscopy of right knee History of carpal tunnel release of both wrists Social History Smoking Status: Never smoker alcohol intake: never substance use type: does not use caffeine: Yes Type: coffee Number of servings: 4 and tea Review of Systems (Anesthesia) ROS Narrative System reviewed and no additional complaints, except as documented.
--- NOTE | 2024-11-28 07:08 | RAD_ITS ---
EXAM: XR Left Knee, 1 or 2 Views CLINICAL INDICATION: TECHNIQUE: Frontal and/or lateral views of the left knee. COMPARISON: No relevant prior studies available. FINDINGS: BONES/JOINTS: Total knee replacement. Intact hardware. No acute fracture. No dislocation. SOFT TISSUES: Soft tissue emphysema and swelling. RAD/Knee 1 or 2 Views IMPRESSION: Status post total knee replacement in anatomic position. Reading Location[facility]
[2024-11-28] MEDS: Cefazolin 2 GM in Syringe 10 ML IV (07:29)
--- NOTE | 2024-11-28 07:30 | KNEE_PTH ---
PATIENT: ELIZABETH ISABEL LOC: MS3 U#:[id number] AGE/SX: 84/F ROOM: ID310 RE11/28/[address]: Dr. Timothy Person MD : 1940 BED: 1 DIS: 11/30/2024 SPEC #: [id number] RECD: 11/28/24 11:20 STATUS: DANIELA DISLASneha #: [id number] JAMEY: 11/28/24 07:[address]: Yevgeniy Pal DEPT: SURGICAL PATHOLOGY RECD BY: Josi Laws ENTERED: 11/28/24 11:48 SP TYPE: TOTAL KNEE OTHR DR: Joellen Duffy, MECHANICAL SOUND TECHNICIAN-C Tissues: Knee, NOS Procedures: Decalcification bone/plaque Surgery Specimen Level IV HEADER OPERATION: ERAS, total knee replacment robotic arm assist PRE-OP DIAGNOSIS: Osteoarthritis of left knee TISSUE SUBMITTED: Left knee bone and tissue MICROSCOPIC DIAGNOSIS Left knee, total knee arthroplasty: * Articular bone with reactive/degenerative changes and fatty marrow spaces. MICROSCOPIC DESCRIPTION Slides are reviewed. GROSS DESCRIPTION Received in formalin labeled the patient's name Elizabeth Smith and designated left knee bone and tissue are multiple yellow to red-brown ragged irregular shaped bone and mid amount of yellow-red soft tissue fragments that aggregate to 11.5 x 10.5 x 2.0 cm. The largest fragment is consistent with a tibial plateau and shows a yellow smooth articular surface along the periphery and is red-brown and granular centrally. The margin of this fragment is dark red-brown hemorrhagic and trabecular. The additional fragments show focal areas of articular surface that also vary from yellow-fernández and smooth to red-brown and granular. Sectioning through the bony fragment shows articular cartilage that ranges from 0.2 to 0.3 cm thick.Cassette summary:1-field support representative section of smaller fragments2-field support representative section of tibial plateau Cassette submitted after decalcification11/28/2004 TC: [id number]
[2024-11-28 08:05] LABS: Bedside Glucose 95 mg/dL (74-106)
[2024-11-28] MEDS: TXA in NS 100ml (Placed in Wound) OPERA.SITE (08:40)
[2024-11-28] MEDS: Joint Pain Solution (NO KETOROLAC) IV (08:46)
--- NOTE | 2024-11-28 09:05 | OP.PCM_ITS ---
Operative Report (Standard) Operative Information Date of Procedure: 11/28/24 Pre-Operative Diagnosis: Left knee primary osteoarthritis Post-Operative Diagnosis: Left knee primary osteoarthritis Surgery/Procedure Performed: Left knee minimally invasive robotic assisted total knee replacement evening sitter: Yes [employer]fg [employer]: Anna Ashford Tasks completed by industrial hire sales assistant: Other (See operative report) Additional assistant financial accountant?: No Type of Anesthesia: Spinal RN Documented Start/Stop Times: Operation Date: 11/28/24 07:30 Case Time Into Pre-Op 11/28/24 05:23 Anesthesia Start 11/28/24 07:29 Into Room 11/28/24 07:29 Out of Pre-Op 11/28/24 07:32 Procedure Start 11/28/24 07:59 Procedure End 11/28/24 09:44 Anesthesia End 11/28/24 09:50 Out of Room 11/28/24 09:50 Into Recovery 11/28/24 09:53 Out of Recovery 11/28/24 11:00 Procedure Start Time: 07:59 Procedure Stop Time: 09:44 Select all DRAINS/GRAFTS/IMPLANTS that apply: Prosthetic device Prosthetic device details: See body of operative report Special Medications: 2 g Ancef, 1 g TXA at incision, 1 g TXA closure, 10 mg Decadron, joint cocktail (5 mg Duramorph, 30 mL of 0.5% Ropivicaine, 1000 units of epinephrine, 30 mg of Toradol) Estimated Blood Loss: 400 mL Fluids Replaced: 2200 mL crystalloid Specimen collected: Yes Description of specimen(s) removed: Bony cuts Description of surgery: Implants used: 1. Radford size 4 triathlon cruciate retaining distal femoral press-fit component 2. Radford size 4 press-fit tritanium tibial baseplate 3. Radford X3 9 mm CS polyethylene Brief history operative indications: 84-year-old f with history of left knee osteoarthritis with radiographic findings with loss of joint space, osteophyte formation and subchondral sclerosis. Failed conservative measures as mentioned in the H&P. Discussion of total knee arthroplasty as well as risk and benefits were discussed the patient including but not limited to blood loss, DVTs, PEs, neurovascular damage, general risk of anesthesia including loss of life, and stiffness or instability were discussed with patient. Patient demonstrated understanding and was able to sign informed consent. Procedure: On the date of procedure patient's left lower extremity was marked in the preoperative area. The patient was then taken back to the operating room where the patient was placed on the table in the supine position. All bony prominences were identified a well-padded. Anesthesia assumed control of the C-spine and airway and remained controlled throughout the remainder of the procedure. A tourniquet was placed on the left upper thigh and the leg was prepped in a sterile fashion. The surgeon then scrubbed at this time .Upon reentering the room left lower extremity was draped in a standard orthopedic fashion. A timeout was then called and everyone agreed upon the side, the site, the procedure to be performed, patient's identity and antibiotics given. Esmarch bandage was used to exsanguinate the extremity and the tourniquet was placed up to 250 mmHg with the knee in flexion. A midline skin incision was made and sharp dissection was taken down through skin subcutaneous tissue and fat. The standard medial parapatellar incision was made and the patella was subluxed laterally. An Appropriate deep MCL release was done and the fat pad was resected. Our attention was then directed to the patella. The patella was everted and found to have appropriate cartilage to retain. The knee was then flexed up in 2 femoral pins were placed inside the incision and 2 tibial pins were placed outside the incision in the medial tibia bicortically. Once this was completed the 2 checkpoints in the femur and tibia were placed. Knee was then flexed up and the bony landmarks were registered. Once this was completed knee was taken through range of motion and manually stressed allowing us to a plan for an appropriate tibial cut. The robotic arm was brought into the field sterilely and checkpoint and saw were registered. Based on the patient's deformity the tibial cut was made in 3 degrees varus. At this time the tensioner was then placed in the joint and ligament tension was checked at 90 degrees and full extension. Based on the patient's ligamentous tension appropriate adjustments were made to the operative plan and ligament releases were done. Once we were happy with our operative plan with balanced flexion and extension gaps our attention was directed to the femur. The robot was brought into the field sterilely and registered. Posterior condylar cuts, anterior chamfer cuts and anterior cuts were appropriately made for a size 4 femur. When these were completed the saws were switched out in the distal femoral and posterior chamfer cuts were made. Protecting the soft tissue throughout this time. A size 4 tibial base plate was selected. the knee was flexed to 90 degrees and the soft tissues and posterior osteophytes were removed from the joint. 40 cc of the periarticular injection was injected into the posterior medial corner of the joint. The appropriate trials were then placed on the femur and tibia. A trial polyethylene was trialed to ensure proper balancing and stability of the knee. The appropriate tibial internal rotation was then marked with a bovie. Our attention was then directed to the patella. Patellar tracking was checked and deemed appropriate. Once we were happy lug holes were drilled for the femur and trial components were removed. The tibia was subluxed and pinned into place and the keel was punched and drilled appropriately. Final components were verified and opened. The wound was copiously irrigated with normal saline. When the cement was ready the components were impacted into place starting with the tibia then the femur, finally the patella was compressed into place. The trial poly component was placed and the knee was placed in full extension. Once the the implants were secured, the tracking, alignment and balance were verified and a size 9 mm CS polyethylene component was placed. Once the final components were placed a 3-minute dilute Betadine lavage was performed followed by an Irrisept lavage was performed and the wound was copiously irrigated with normal saline solution and the periarticular injection was given. The wound was closed in a layer shah fashion using #1 vicryl interrupted sutures for the arthrotomy, 2-0 interrupted Vicryl suture for the subcuticular layer and mitch for final skin closure. A sterile compressive dressing was then placed. The patient was then awakened from anesthesia, transferred to the [facility] and transferred to the PACU for recovery. Post op plan DVT ppx: Eliquis 2.5 mg daily for 4 weeks, thigh high compression stockings Follow up: in office in 2 weeks for wound check PT: to start POD #0 at hospital, outpatient PT should be arranged. My physician assistant financial accountant was a vital part of this case, they was important because there was not another skilled set of hands available to their training and aptitude needed for safe and appropriate completion of this case. They were important in appropriate retraction during the case, and protection of soft tissues during bony cuts. In particular the experience and skill of this assistant financial accountant made for safe retraction and exposure during implantation of medical implants without damage to vital soft tissues or structures. His intimate knowledge of the case and my steps aided in safe and expedient completion of the procedure as well as appropriate position of the leg during the case. He was also vital in assisting with closure under my direct supervision. Due to the complexity of this case robotic arm was used to assist in the surgery to improve accuracy and clinical outcomes. Surgical Findings: Stable knee with good patella tracking. Patella had good cartilage. Stage IV osteoarthritis Complications Complications: No Admit VTE Documentation VTE Present on Admission: No VTE Mechan Device Prophylaxis: SCD's and Thigh High JOHN Hose VTE Pharm Prophylaxis ordered?: Yes
--- NOTE | 2024-11-28 10:36 | PCM.POST.ANE ---
Anesthesia: Postop Eval I Current Vital Signs Temperature: 97 F Pulse Rate: 80 Blood Pressure: 106/58 Respiratory Rate: 16 Pulse Ox: 100 Oxygen Delivery Method: Nasal Cannula Oxygen Flow Rate (L/min): 4 Assessment Airway patent: Yes Spontaneous unlabored respirations: Yes Mental status: Awake nausea: No Vomiting: No Anesthesia Complication: No Fluid Hydration Crystalloid volume administer (ml): 800 Total IV fluid infused: 800 Progress Note Anesthesia document: Postop Eval 1 completed: Yes
--- NOTE | 2024-11-28 10:38 | PCM.POSTANE2 ---
Anesthesia Postop Eval I Sum Postop Eval Completion status Anesthesia document: Postop Eval 1 completed: Yes Anesthesia Postop Eval I Summary Anesthesia Postop Eval I Summary: Anesthesia Postop Eval I: Assessment Summary Airway patent Yes 11/28/24 10:38 Spontaneous unlabored Yes 11/28/24 10:38 respirations Mental status Awake 11/28/24 10:38 nausea No 11/28/24 10:38 Vomiting No 11/28/24 10:38 Anesthesia Postop Eval I: Fluid Summary Crystalloid volume administer 800 11/28/24 10:38 (ml) Colloids volume administered ( ml) Blood Product volume administered (ml) Total IV fluid infused 800 11/28/24 10:38 Anesthesia Postop Eval I: Summary Notes Anesthesia Complication No 11/28/24 10:38 Anesthesia Complication Comment: Post-operative progress note Anesthesia: Postop Eval II Evaluation Mental status: Awake Pain Level: 2 nausea: No Vomiting: No
[2024-11-28] MEDS: Ensure Surgery 237 ML LIQUID PO ×2 (11:48→16:36)
[2024-11-28] MEDS: oxyCODONE 5 MG Tablet PO (13:01)
--- NOTE | 2024-11-28 13:55 | CPS ---
SMI and Pep placed in room. PT with pt at this time. SMI and Pep start held.
--- NOTE | 2024-11-28 15:09 | CASEMGMT ---
PONCE PIERRE Assessment: Face to Face with pt for initial transition planning/care coordination assessment. PONCE PIERRE introduced self and role at [facility], pt voices understanding and consents to assessment. Pt is A&O x4 and answers all questions appropriately at this time. Pt sitting up in bed in no distress. Care providers, pharmacy, and demographics verified/updated. Strata: no strata available at this time. Admitting Dx: Total Knee replacement PCP: Clive Specialists:Zainab, Esl Teacher; Demarco, Ortho Preferred Pharmacy: [facility] Insurance: e-Zassi Prescription Benefit: yes LNOK: , Leland; Daughter, Jesi Living Arrangements: Pt lives with in a 1 story home with 3 steps to enter. ADLs: Pt I at baseline Transportation: Pt drives self and denies concerns with transportation. DME: [employer], Cane, Comfort Ht Commode, grab bars HHC/SNF: Previously used [facility] Pt states no concerns with going home at time of dc. Pt states no further concerns/needs. CM to follow. Advised pt to ask CM if any further question/concerns/needs arise, voices understanding. Pt Goal: Home Plan: Home with OP therapy scheduled for 12/01/24. Suri SERRA CM
[2024-11-28] MEDS: Cefazolin 1 GM/50 ML BAG IV ×2 (15:23→23:18)
--- NOTE | 2024-11-28 16:12 | PCM.PN.HOSP ---
Subjective Subjective 84-year-old female presents to the hospital for an elective left total knee replacement secondary to osteoarthritis. Postoperatively her oxygen has been able to be weaned down to about 2 L nasal cannula. She has no significant medical history outside of some mild blood pressure as well as hypothyroidism. No recent medical issues and no changes in medications Objective Data Objective Data Vital Signs: Vital Signs Temp Pulse Resp BP Pulse Ox O2 Del Method O2 Flow Rate 97.2 F L 57 L 18 93/50 L 99 Nasal Cannula 2 11/28/24 15:13 11/28/24 15:13 11/28/24 15:13 11/28/24 15:13 11/28/24 15:31 11/28/24 15:13 11/28/24 15:31 Oxygen Flow Rate (L/min) 2 Oxygen Delivery Method Nasal Cannula Weight: 186 lb 6.4 oz Body Mass Index (BMI) 0.3 Intake & Output: Intake and Output for Last 24 Hours 11/27/24 11/28/24 11/29/24 03:59 03:59 03:59 Intake Total 3172 / 3172 Balance 3172 / 3172 Lab / Micro Data 11/29/24 07:08 11/29/24 07:08 Labs: Laboratory Results - last 24 hr 11/28/24 05:53: POC Glucose 95 Radiography Diagnostic Testing: Radiology Impression Knee X-Ray 11/28/24 07:08 IMPRESSION: Status post total knee replacement in anatomic position. Reading [facility] Physical Exam Narrative General: Alert, Oriented x3, Cooperative, No apparent distress HEENT: Atraumatic, PERRLA, EOMI, Normocephalic Oral: Moist Mucosa Neck: Supple, No JVD Lungs: Diminished, Normal air movement, No rhonchi, No wheeze, No rales Cardiovascular: Regular rate, Regular Rhythm, Normal S1, Normal S2, No murmurs Abdomen: Soft, Non Tender, Non-Distended, No Hepato-splenomegaly Extremities: No edema, Capillary Refill Less than 3 Seconds Skin: No rashes, No breakdown Musculoskeletal: Tenderness to left knee, dressing intact Neurological: No focal neurological deficits, Motor Exam 5/5 strength throughout, Sensory exam intact to light touch and pain Psych/Mental Status: Normal Affect, Appropriate Assessment & Plan Assessment/Plan (1) Status post total left knee replacement: PLAN: Plan 1. Status post left total knee replacement on 11/28/2024 ? Pain management per primary ? PT/OT ? DVT prophylaxis per primary consisting of Eliquis 2.5 mg p.o. twice daily 2. Essential HTN ? Blood pressures are stable if a little bit low postoperatively, will monitor and make adjustments as necessary ? Can resume her home Norvasc at 2.5 mg p.o. daily 3. Hypothyroidism ? Stable ? Continue with Synthroid 4. Anxiety/depression ? Stable ? Continue with Celexa DVT: Eliquis Charges/Coding Visit Charges Office Visits / Consults: [id number] OV L3 New 30min
[2024-11-28] MEDS: Senna/Docusate Sodium 1 Tablet 2 TABLET PO (21:10)
[2024-11-28] MEDS: APIXABAN 2.5 MG TABLET (WCH) PO (21:10)
[2024-11-29 02:18] VITALS: BP 135/66; PULSE 60; RESP 16; TEMP 36.9; O2SAT 95
[2024-11-29] MEDS: traMADol 50 MG Tablet PO ×3 (02:49→21:31)
[2024-11-29] MEDS: Acetaminophen 500 MG Tablet 1000 MG PO ×3 (05:59→21:31)
[2024-11-29 06:01] VITALS: BP 116/59; PULSE 64; RESP 16; TEMP 36.6; O2SAT 94
[2024-11-29 07:40] LABS: Hematocrit 33.2 % (37-47); Hemoglobin 10.9 g/dL (12.0-15.0); Mean Corp Hgb Conc 32.8 g/dL (32-36); Mean Corpuscular Hgb 31.5 pg (27.0-32.0); Mean Platelet Vol. 11.5 fl (6.2-12.0); Platelet Count 155 K/mm3 (150-450); RBC Distribution Width SD 49.5 fl (35.1-43.9); Red Blood Count 3.46 M/mm3 (4.2-5.4); White Blood Count 8.1 K/mm3 (4.4-11.0)
--- NOTE | 2024-11-29 08:34 | PN.ORTHO_ITS ---
Subjective Subjective Patient is lying in bed uncomfortably this morning. Patient has not yet been up working with physical therapy as she has had symptoms of nausea, vomiting, dizziness, lightheadedness anytime she sits up out of bed. Patient states that she almost passed out this morning. Patient states that this time her pain is not controlled due to oxycodone causing nausea and vomiting patient states that this time her pain is not controlled due to oxycodone causing nausea and vomiting and tramadol not helping with the pain at all. Patient denies any shortness of breath, chest pain, calf pain. Patient denies any fever, chills, signs of infection. Patient denies having a bowel movement at this point. Objective Data Objective Data Vital Signs: Vital Signs Temp Pulse Resp BP Pulse Ox O2 Del Method O2 Flow Rate 98 F 64 16 116/59 L 94 Room Air 2 11/29/24 06:01 11/29/24 06:01 11/29/24 06:01 11/29/24 06:01 11/29/24 06:01 11/29/24 06:01 11/28/24 15:31 Oxygen Flow Rate (L/min) 2 Oxygen Delivery Method Room Air Weight: 84.55 kg Body Mass Index (BMI) 0.3 Intake & Output: Intake and Output for Last 24 Hours 11/27/24 11/28/24 11/29/24 23:59 23:59 23:59 Intake Total 4043.25 / 4343.25 1275 / 1275 Balance 4043.25 / 4343.25 1275 / 1275 Lab / Micro Data 11/29/24 07:08 11/29/24 07:08 Labs: Laboratory Results - last 24 hr 11/29/24 07:08: WBC 8.1, RBC 3.46 L, Hgb 10.9 L, Hct 33.2 L, MCV 96.0, MCH 31.5, MCHC 32.8, RDW Std Deviation 49.5 H, RDW Coeff of Neto 14.0, Plt Count 155, MPV 11.5 Radiography Diagnostic Testing: Radiology Impression Knee X-Ray 11/28/24 07:08 IMPRESSION: Status post total knee replacement in anatomic position. Reading [facility] Physical Exam Narrative 1. JOHN hose in place bilaterally. 2. SCDs in place bilaterally. 3. Distal dressing is with drainage in the middle one third of the dressing. Proximal dressing is clean dry and intact. 5. Dorsiflexion and plantarflexion are performed actively without pain or restriction. 6. Sensation intact to light touch. 7. Neurovascularly intact. 8. Positive Homans on the left. Left calf is extremely tender to palpation. 9. Negative Homans on the right. Const alert, oriented x3 and no apparent distress Assessment & Plan Assessment/Plan (1) Status post total left knee replacement: PLAN: Status post left total knee replacement day 1. 1. DVT prophylaxis: Patient will be taking Eliquis 2.5 mg twice daily postoperatively. Patient will also be wearing JOHN hose for 2 weeks postoperatively. Patient was educated she is able to remove JOHN hose at night. Patient was encouraged to increase movement while at home to prevent DVT. 2. Pain medications: Patient was instructed to take Tylenol 1000 mg every 8 hours taking no more than 3000 mg in 24 hours. We will avoid NSAIDs in this patient due to decreased GFR and Eliquis use. Patient was supposed to be on oxycodone as needed for narcotic pain medication. Which patient has states made her very sick. Patient was then given tramadol which she states did not help her pain at all. OARRS report was reviewed today. Risk of abuse potential for narcotic pain medication was discussed and reviewed. Patient was advised not to drive a motor vehicle or operate heavy equipment while taking narcotic pain medication. They were instructed to use the minimal amount of narcotic pain medication as required for the pain. Patient voiced understanding. 3. Constipation: Patient was instructed to take senna until their first bowel movement to decrease risk of impaction following surgery. Patient was instructed if they have not had a bowel movement in 3 days to call our office for reevaluation. 4. Physical therapy: Patient has not yet worked with physical therapy due to symptoms of nausea and vomiting when she tries to get up from bed. Patient will be weightbearing as tolerated. Patient will need work with physical therapy before discharge. 5. H&H: .2. Patient does have symptoms of nausea, vomiting, dizziness which she believes is from taking the oxycodone. Patient does not have to begin anemia protocol as hemoglobin is not below 10 at this point. 6. BMP has been drawn but not yet resulted we will continue to monitor. 7. Incentive spirometry: Patient was encouraged to use incentive spirometer every hour that they are awake for the first week to exercise long and decrease risk postoperative infection. 8. Dressing: Patient was educated that she is able to get the dressing wet on postoperative day 1 and can remove the dressing on postoperative day 5. Patient is able to leave incision open to air as long as clean dry and intact. 9. Patient is to follow-up per postoperative instructions. 10. We will avoid NSAIDs at this time due to decreased GFR and use of Eliquis. 11. Patient will be on famotidine postoperatively for 30 days. 12. Medicine is on board and appreciate any recommendations from medicine at this time. 13. Disposition: At this time I think that patient would benefit from a another night stay in the hospital. At this time patient has not been able to work with physical therapy as she gets very nauseous and lightheaded and has even vomited when she has tried to get up. I would like patient to work with physical therapy before discharge. Patient's pain is not adequately controlled at this time. Appreciate recommendations from medicine for safe and proper discharge. Appreciate recommendations from therapy for safe and proper discharge. Appreciate recommendations from case management for safe and proper discharge.
--- NOTE | 2024-11-29 08:36 | VDLE_ITS ---
Reason For Study Reason For Study: LLE Swelling / Pain RIGHT LEFT CFV is compressible, spontaneous, phasic, competent GSV is normal. and demonstrates normal augmentation. CFV is compressible, spontaneous, phasic, competent, Procedure and demonstrates normal augmentation. This is a venous duplex using B-mode, color flow and FV is compressible, spontaneous, phasic, competent spectral Doppler. and demonstrates normal augmentation. Exam performed portable in patient room. POP V is compressible, spontaneous, phasic, competent The exam was diagnostic. and demonstrates normal augmentation. A preliminary report was called and/or faxed to M/S 3 T/P Trunk is compressible. sdv pilot/navigator/dds operator. PTV is compressible. LT PerV is compressible. VL/Venous Duplex US, Unilateral Interpretation Summary Deep veins of the left lower extremity are patent and compressible segmentally. There is no evidence of left lower extremity deep vein thrombosis. Valvular competence appears intact within the p roximal deep venous system on the left . The left great saphenous vein appears patent and compressible segmentally. The right common femoral vein is patent and compressible . Ordering Physician: Anna Ashford Referring Physician: Yevgeniy Pal Performed By: William Miranda RVT
[2024-11-29 08:43] VITALS: BP 133/71; PULSE 64; RESP 16; TEMP 36.6; O2SAT 97
[2024-11-29 09:09] LABS: Anion Gap 10 (5-15); BUN 13 mg/dL (4-19); BUN/Creat Ratio 18.3 RATIO (10-20); Carbon Dioxide 22.4 mmol/L (22.0-29.0); Chloride 104 mmol/L (96-108); Creatinine, Serum 0.71 mg/dL (0.70-1.20); EST Glomerular Filtration Rate 85 (>60); Estimated Creatinine Clearance 72.37 ml/min (50-250); Glucose 119 mg/dL (70-99); Potassium 4.3 mmol/L (3.3-5.1); Sodium Level 136 mmol/L (133-145)
[2024-11-29] MEDS: Ensure Surgery 237 ML LIQUID PO ×2 (09:14→17:29)
[2024-11-29] MEDS: Senna/Docusate Sodium 1 Tablet 2 TABLET PO ×2 (09:14→21:31)
[2024-11-29] MEDS: APIXABAN 2.5 MG TABLET (WCH) PO ×2 (09:14→21:31)
--- NOTE | 2024-11-29 09:48 | PCM.PN.HOSP ---
Subjective Subjective She had some nausea last evening after oxycodone and then had a little bit of dizziness this morning, she states that the dizziness is a chronic issue for her blood pressures are stable Objective Data Objective Data Vital Signs: Vital Signs Temp Pulse Resp BP Pulse Ox O2 Del Method O2 Flow Rate 97.8 F 64 16 133/71 H 97 Room Air 2 11/29/24 08:43 11/29/24 08:43 11/29/24 08:43 11/29/24 08:43 11/29/24 08:43 11/29/24 08:43 11/28/24 15:31 Oxygen Flow Rate (L/min) 2 Oxygen Delivery Method Room Air Weight: 186 lb 6.4 oz Body Mass Index (BMI) 0.3 Intake & Output: Intake and Output for Last 24 Hours 11/28/24 11/29/24 11/30/24 03:59 03:59 03:59 Intake Total 4343.25 / 4343.25 975 / 975 Balance 4343.25 / 4343.25 975 / 975 Lab / Micro Data 11/29/24 07:08 11/29/24 07:08 Labs: Laboratory Results - last 24 hr 11/29/24 07:08: WBC 8.1, RBC 3.46 L, Hgb 10.9 L, Hct 33.2 L, MCV 96.0, MCH 31.5, MCHC 32.8, RDW Std Deviation 49.5 H, RDW Coeff of Neto 14.0, Plt Count 155, MPV 11.5, Sodium 136, Potassium 4.3, Chloride Direct 104, Carbon Dioxide 22.4, Anion Gap 10, BUN 13, Creatinine 0.71, Estim Creat Clear Calc 72.37, Est GFR (MDRD) Non-Af 85, BUN/Creatinine Ratio 18.3, Glucose 119 H, Calcium 9.0 Radiography Diagnostic Testing: Radiology Impression Knee X-Ray 11/28/24 07:08 IMPRESSION: Status post total knee replacement in anatomic position. Reading Location: [facility] Physical Exam Narrative General: Alert, Oriented x3, Cooperative, No apparent distress HEENT: Atraumatic, PERRLA, EOMI, Normocephalic Oral: Moist Mucosa Neck: Supple, No JVD Lungs: Diminished, Normal air movement, No rhonchi, No wheeze, No rales Cardiovascular: Regular rate, Regular Rhythm, Normal S1, Normal S2, No murmurs Abdomen: Soft, Non Tender, Non-Distended, No Hepato-splenomegaly Extremities: No edema, Capillary Refill Less than 3 Seconds Skin: No rashes, No breakdown Musculoskeletal: Tenderness to left knee, dressing intact Neurological: No focal neurological deficits, Motor Exam 5/5 strength throughout, Sensory exam intact to light touch and pain Psych/Mental Status: Normal Affect, Appropriate Assessment & Plan Assessment/Plan (1) Status post total left knee replacement: PLAN: Plan 1. Status post left total knee replacement on 11/28/2024 ? Pain management per primary ? PT/OT ? DVT prophylaxis per primary consisting of Eliquis 2.5 mg p.o. twice daily ? Continue to encourage getting out of bed, I think her lightheadedness and dizziness is baseline especially in the setting of surgery, blood pressures are stable ? She states that she will refuse oxycodone given how it made her feel yesterday with her renal function being stable Toradol as an option 2. Essential HTN ? Blood pressures are stable if a little bit low postoperatively, will monitor and make adjustments as necessary ? Can resume her home Norvasc at 2.5 mg p.o. daily 3. Hypothyroidism ? Stable ? Continue with Synthroid 4. Anxiety/depression ? Stable ? Continue with Celexa DVT: Eliquis Charges/Coding Visit Charges Office Visits / Consults: [id number] OV L3 Est 20min
--- NOTE | 2024-11-29 10:11 | CASEMGMT ---
Met with patient to complete BECKMAN form. BECKMAN form explained to patient who voiced understanding and signed form. Original form placed in pt?s chart and copy provided to patient. Portia Max, Discharge Planning Asst
[2024-11-29 12:45] VITALS: BP 151/78; PULSE 73; RESP 16; TEMP 36.8; O2SAT 96
[2024-11-29 17:24] VITALS: BP 155/81; PULSE 81; RESP 16; TEMP 36.6; O2SAT 94
[2024-11-29 20:43] VITALS: BP 147/77; PULSE 91; RESP 16; TEMP 37.4; O2SAT 92
[2024-11-30 03:00] VITALS: BP 130/66; PULSE 81; RESP 16; TEMP 37.3; O2SAT 94
[2024-11-30] MEDS: traMADol 50 MG Tablet PO (05:19)
[2024-11-30] MEDS: Acetaminophen 500 MG Tablet 1000 MG PO ×2 (05:19→13:44)
[2024-11-30] MEDS: 0.9% Saline Lock 10 ML Syringe IV (05:20)
[2024-11-30 06:54] LABS: Hematocrit 32.8 % (37-47); Hemoglobin 11.2 g/dL (12.0-15.0); Mean Corp Hgb Conc 34.1 g/dL (32-36); Mean Corpuscular Hgb 31.8 pg (27.0-32.0); Mean Corpuscular Volume 93.2 fL (81-99); Mean Platelet Vol. 11.8 fl (6.2-12.0); Platelet Count 148 K/mm3 (150-450); RBC Distribution Width CV 13.7 % (11.6-14.6); RBC Distribution Width SD 46.4 fl (35.1-43.9); Red Blood Count 3.52 M/mm3 (4.2-5.4); White Blood Count 8.3 K/mm3 (4.4-11.0)
[2024-11-30 09:48] VITALS: BP 119/71; PULSE 93; RESP 18; TEMP 36.5; O2SAT 97
--- NOTE | 2024-11-30 10:27 | CASEMGMT ---
Discharge Planning A list of?SNF providers including quality and resource use data and consistent with the patient's preferred geographic region, medical needs, and insurance network was created in [employer].? This list was provided to the [facility] Discharge Planning Assmichelle
[2024-11-30] MEDS: Senna/Docusate Sodium 1 Tablet 2 TABLET PO (10:51)
[2024-11-30] MEDS: APIXABAN 2.5 MG TABLET (WCH) PO (10:51)
--- NOTE | 2024-11-30 10:59 | PN.ORTHO_ITS ---
Subjective Subjective The patient was sitting in bedside chair upon examination. Patient denies any chest pain, shortness of breath, dizziness, lightheadedness, nausea or vomiting, or calf pain. Pain is controlled on medications. No adverse overnight events. Patient is doing much better today. She had a very difficult day yesterday with pain and physical therapy. She was unable to use the oxycodone due to side effect. Patient was switched over to tramadol and she tolerates this medication much better. With physical therapy she was able to walk 120 feet and manage steps. She would like to do home health for the first 2 weeks for therapy. She also has history of DVT in the past and her primary care provider has recommended she do Eliquis for 3 months postoperatively. Objective Data Objective Data Vital Signs: Vital Signs Temp Pulse Resp BP Pulse Ox O2 Del Method O2 Flow Rate 97.7 F L 93 18 119/71 97 Room Air 2 11/30/24 09:48 11/30/24 09:48 11/30/24 09:48 11/30/24 09:48 11/30/24 09:48 11/30/24 09:48 11/28/24 15:31 Oxygen Flow Rate (L/min) 2 Oxygen Delivery Method Room Air Weight: 84.55 kg Body Mass Index (BMI) 0.3 Intake & Output: Intake and Output for Last 24 Hours 11/28/24 11/29/24 11/30/24 23:59 23:59 23:59 Intake Total 4043.25 / 4343.25 1750 / 1750 350 / 350 Balance 4043.25 / 4343.25 1750 / 1750 350 / 350 Lab / Micro Data 11/30/24 06:21 11/29/24 07:08 Labs: Laboratory Results - last 24 hr 11/30/24 06:21: WBC 8.3, RBC 3.52 L, Hgb 11.2 L, Hct 32.8 L, MCV 93.2, MCH 31.8, MCHC 34.1, RDW Std Deviation 46.4 H, RDW Coeff of Neto 13.7, Plt Count 148 L, MPV 11.8 Radiography Diagnostic Testing: Radiology Impression Venous Doppler Study 11/29/24 08:36 Interpretation Summary Deep veins of the left lower extremity are patent and compressible segmentally. There is no evidence of left lower extremity deep vein thrombosis. Valvular competence appears intact within the proximal deep venous system on the left . The left great saphenous vein appears patent and compressible segmentally. The right common femoral vein is patent and compressible . Ordering Physician: Anna Ashford Referring Physician: Yevgeniy Pal Performed By: William Miranda RVT Physical Exam Narrative Vital signs stable and afebrile. SCDs and JOHN hose are in place bilaterally Patient is able to plantarflex and dorsiflex actively. Sensation is intact to light touch to saphenous, sural, superficial and deep peroneal, and tibial distribution. Dressings are clean dry and intact. Negative Homans bilaterally, negative signs and symptoms of DVT. Const alert, oriented x3 and no apparent distress Assessment & Plan Assessment/Plan (1) Status post total left knee replacement: PLAN: Status post left total knee replacement day 2. 1. DVT prophylaxis: Patient will be taking Eliquis 2.5 mg twice daily postoperatively. Patient will also be wearing JOHN hose for 2 weeks postoperatively. Patient was educated she is able to remove JOHN hose at night. I did advise the patient if she has complications with the JOHN hose she is to contact our office. She voiced understanding. Per patient's primary care physician she documented that they want her on Eliquis for 3 months postoperatively. I will give her 1 month prescription and she is to contact her primary care's office for further medication. They may be able to do it mail-in to reduce the cost but I am uncertain. We will attempt trial rebate if insurance will cover. 2. Pain medications: Patient was instructed to take Tylenol 1000 mg every 8 hours taking no more than 3000 mg in 24 hours. We will avoid NSAIDs in this patient due to decreased GFR and Eliquis use. Oxycodone made patient sick in which she had to stop. Tramadol was then given which she has been tolerating. She will continue at this time with Tylenol and tramadol for primary pain control. Use ice and elevation. 3. Constipation: Patient was instructed to take senna until their first bowel movement to decrease risk of impaction following surgery. Patient was instructed if they have not had a bowel movement in 3 days to call our office for reevaluation. Patient has not had a bowel movement but is passing gas. 4. Physical therapy: Patient did very well with physical therapy today walking 180 feet and able to manage steps. Plan will be for patient to go home with home health physical therapy for the first 2 weeks. I did recommend after 2 weeks of home health she should do formal physical therapy in an outpatient setting. She voiced understanding. 5. H&H: 11.2/32.8. Asymptomatic. Postoperative drop in hemoglobin secondary to blood loss from surgery versus dilutional component. No need for further treatment. 6. Incentive spirometry: Patient was encouraged to use incentive spirometer every hour that they are awake for the first week to exercise long and decrease risk postoperative infection. 7. Dressing: Patient was educated that she is able to get the dressing wet on postoperative day 1 and can remove the dressing on postoperative day 5. Patient is able to leave incision open to air as long as clean dry and intact. 8. Medicine is on board and appreciate any recommendations from medicine at this time. 9. Disposition: Patient is currently orthopedically stable. Medically she has been doing well. Patient is now tolerating the pain medications since switching over to tramadol. She did well with physical therapy today and okay for discharge. We will set her up with home health physical therapy. Patient is currently on Eliquis due to her past history of DVT. Her primary care provider is recommending 3 months of coverage. We will give her 1 month of coverage from the hospital and then she will need to check with her primary care physician for further medication. Patient voiced understanding. She would like her prescriptions E scribed to [facility] [place]. Patient will follow-up per postoperative instructions. Case was discussed with the care management team and they will cancel her outpatient physical therapy. They will set her up with home health physical therapy. Patient has been advised to contact our office with any concerns or questions upon discharge. I have reviewed the [place] Automated Rx Reporting System (OARRS) report for this patient for refill pattern and other prescriber involvement as part of the appropriate surveillance for the provision of acute and chronic controlled medications. The report was requested and reviewed on the date of this entry and was considered in the prescribing process.
--- NOTE | 2024-11-30 11:08 | DCINST_ITS ---
Discharge Instructions Diet Discharge Diet: No restrictions DC O2, CPAP, BIPAP needs Home O2 Discharge instructions: No Dressing / Incision Discharge Activity: May Not Drive (No driving until you can walk 100 feet with use of cane and off narcotics) May shower in (days): 1 (Please turn dressing away from water. Okay to get wet as long as dressing is intact to skin.) Ice area for (Minutes): 20 (Every 1-2 hours while awake. Please place barrier between the skin and ice pack.) Weight Bearing Status: Weight bearing as tolerated (With walker) Keep extremity elevated above heart level: Operative Extremity Dressing / Incision Call your doctor if your incision/area has: Continuous Slow Oozing, Sudden Increased Bleeding, Increased Pain/ Swelling, Increased Redness and Foul Smelling Discharge Call your doctor if you observe: Fever of 101 or Higher, Coldness, Increased Pain, Numbness or Tingling, Change in Color, Shortness of breath, Chest pain, Calf discomfort and Uncontrolled pain Remove Dressing in: 3 days (Okay to remove dressing on December 03, 2024) Additional Dressing/Incision Instructions:: Follow [facility] Post-op Instructions. Once postoperative dressing has been removed only use gentle soap and water over the incision. Do not use any ointments, Neosporin, salves, alcohol pads over the incision for 6 weeks postoperatively. Do not submerge underwater for 6 weeks postoperatively. Continue with JOHN hose/elastic stockings for 2 weeks postoperatively. May remove at nighttime but needs to be placed back on the leg during the day. Do NOT use alcohol with narcotic pain medication. Do NOT make important decisions while taking narcotic medication. If you have problems with taking your medication (rash, itching, nausea, etc.) call the office at once. Follow Up Care Test Results: Test results from this visit will be discussed in further detail at your follow- up appointment, if applicable. Discharge Plan Admission Admit Date/Time: 11/28/24 07:07 Attending Provider: Timothy Person Primary Care Provider: Joellen Duffy Consulting Providers: Quan Moser; Yevgeniy Pal Discharge Orders/Prescriptions Prescriptions: New acetaminophen 500 mg Tablet 1,000 mg PO Q8 14 Days Qty: 84 0RF Rx Instructions: Do not take more than 3000 mg Tylenol in a 24-hour period. Eliquis 5 mg Tablet 2.5 mg PO BID 30 Days Qty: 60 0RF sennosides-docusate sodium [Stimulant Laxative Plus] 8.6-50 mg Tablet 2 tab PO BID 3 Days Qty: 12 0RF Rx Instructions: Take until first bowel movement, then as needed tramadol 50 mg Tablet 50 mg PO Q6H PRN PRN (Reason: as needed for pain) 7 Days Qty: 28 0RF Continued cholecalciferol (vitamin D3) 50 mcg (2,000 unit) capsule 50 mcg PO DAILY amlodipine 5 mg tablet 2.5 mg PO DAILY ibandronate 150 mg tablet 150 mg PO QMONTH citalopram 20 mg tablet 20 mg PO DAILY calcipotriene-betamethasone [Taclonex] 0.005-0.064 % suspension 1 applic topical DAILY PRN (Reason: rash) levothyroxine [Synthroid] 100 mcg tablet 100 mcg PO MOTUWETHFRSA Rx Instructions: take Thursday through Thursday folic acid 400 mcg tablet 0.4 mg PO DAILY Rx Instructions: take 1 twice daily if on methotrexate Probiotic 10 billion cell capsule 100 mmu cells PO DAILY calcium 100 mg capsule 100 mg PO DAILY Other Ambulatory Orders: 12 Lead EKG (Routine) Timeframe: [id number] Location: None Selected Ordered By: Dr. Yevgeniy Pal Referrals / Follow Up: Joellen Duffy NP-C [Primary Care Provider] - (Must contact primary care provider for further medication refill of Eliquis) Wilber Goodson PA-C [Med Staff - [facility]] - 12/12/24 10:15 am Disposition Disposition (needs filled in before D/C Order can be placed): Home Health Service
--- NOTE | 2024-11-30 11:08 | CASEMGMT ---
Addendum entered by Estuardo Dinh 11/30/24 13:08: Per Mely @ [facility], they are able to accept pt w/SOC slated for Thursday. This was added to pt's dc plan and pt was made aware. Addendum entered by Estuardo Dinh 11/30/24 11:55: Per Ketty in the pharmacy, Eliquis cost for 30-day supply is $267.10. She applied the Eliquis 30-day free-trial offer card and it did go through and cost will be $0 for pt today. Pt made aware and advised to f/u with PCP if cost for refills is not affordable. She states this should be okay. She would like her meds delivered to her room today and would like pharmacy to call her friend, Britt, for payment, stating she has her credit card w/her, PH: [phone]. Call placed to Nayely in the pharmacy and she was made aware. Original Note: PONCE PIERRE NOTE: Per Wilber, pt did well w/therapy and would like to go home w/HHC for 2 wks. PONCE PIERRE to room. Pt sitting up in chair. Introduced self and role. Pt verifies she feels safe to to discharge home. She states a friend is coming to stay w/her 20/04 for as long as she needs. She would like [facility] and declines wanting list of other HHC options, stating her just had them and she has also had them in the past. PONCE PIERRE placed call to [facility] and OP therapy appt's cx'd. She states JESSICA Merino, told her he only wants her to do HHC for 2 weeks and then to go to OP therapy. Pt aware will need to call them to re-schedule once she has been discharged from [facility]. She voices understanding. Pt to discharge home on Eliquis. Pt has been on Eliquis in the past, but states has never used a savings card before, as far as she knows. PONCE PIERRE informed her the pharmacy to apply the 30-day free trial offer card today, if able, and aware this is a [id number]-pb-g-lifetime use card. Per Wilber, pt will need to be on Eliquis for 3 months, per her PCP. Pt to f/u with PCP if refills are not affordable. Call placed to [facility] and spoke w/Mely. Referral made. Awaiting response. Pt denies having other discharge needs/concerns at this time. Her and [place] @ [place]. Iesha NORRISN RN CM
[2024-11-30 13:41] VITALS: BP 127/73; PULSE 85; RESP 18; TEMP 36.6; O2SAT 98
== END 2024-11-30 15:07 | disposition home health service (06) ==
LOC: MS3 11:14 → SDC 15:23 → MS3 15:24
PROVIDERS: Admitting Provider Specialist; PCP Nurse Practitioner Family; Referring Provider Specialist; Visit Provider Internal Medicine
PROC: 0SRD0JZ Replacement of Left Knee Joint with Synthetic Substitute, Open Approach (ICD-10-PCS; CPT 27447; principal; 2024-11-28 07:00)
DX: M17.12 Unilateral primary osteoarthritis, left knee (principal); N18.30 Chronic kidney disease, stage 3 unspecified; Z86.718 Personal history of other venous thrombosis and embolism; I12.9 Hypertensive chronic kidney disease with stage 1 through stage 4 chronic kidney disease, or unspecified chronic kidney disease; E03.9 Hypothyroidism, unspecified; Z79.899 Other long term (current) drug therapy; Z79.890 Hormone replacement therapy; K21.9 Gastro-esophageal reflux disease without esophagitis; E72.12 Methylenetetrahydrofolate reductase deficiency; F41.9 Anxiety disorder, unspecified; F32.A Depression, unspecified
CPT/HCPCS: 27447; 01402; S2900; 64447; 36415; 73560; 80048; 82962; 85027; 88305; 88311; 93005; 93971; 94668; 96361; 96365; 96366; 97110; 97116; 97162; 97166; 97530; 97535; 99221; 99252; C1776; A4216; G0378; G0463; J2405; J3475

== ENCOUNTER → 2025-02-22 | Outpatient (CLI) | payer MEDICARE, SELFPAY ==
[2025-02-22 16:34] LABS: Creatinine, Serum 0.89 mg/dL (0.70-1.20); EST Glomerular Filtration Rate 65 (>60)
== END | disposition home or self-care (01) ==
LOC: MTLAB 13:41
PROVIDERS: PCP Nurse Practitioner Family; Referring Provider Specialist; Visit Provider Specialist
DX: N28.9 Disorder of kidney and ureter, unspecified (principal)
CPT/HCPCS: 36415; 82565

== ENCOUNTER 2025-04-25 12:51 | Emergency (ER) | payer MEDICARE, SELFPAY ==
[2025-04-25 12:51] VITALS: BP 159/96; BP 178/97; PULSE 73; PULSE 93; RESP 16; RESP 18; TEMP 36.6; TEMP 36.7; O2SAT 95; O2SAT 98
--- NOTE | 2025-04-25 13:21 | CT_ITS ---
EXAM: CT Cervical Spine Without Intravenous Contrast CLINICAL INDICATION: TRAUMA TECHNIQUE: Axial computed tomography images of the cervical spine without intravenous contrast. This CT exam was performed using one or more of the following dose reduction techniques: automated exposure control, adjustment of the mA and/or kV according to patient size, and/or use of iterative reconstruction technique. COMPARISON: No relevant prior studies available. FINDINGS: VERTEBRAE: Degenerative facet arthropathy throughout the cervical spine. No acute fracture. DISCS/SPINAL CANAL/NEURAL FORAMINA: Degenerative disc disease throughout the cervical spine. SOFT TISSUES: Unremarkable. CT/Spine Cervical without Contras IMPRESSION: 1. No acute fracture. 2. Degenerative changes of the cervical spine as described. Reading Location: [facility]
--- NOTE | 2025-04-25 13:21 | CT_ITS ---
EXAM: CT Head Without Intravenous Contrast CLINICAL INDICATION: TRAUMA TECHNIQUE: Axial computed tomography images of the head/brain without intravenous contrast. This CT exam was performed using one or more of the following dose reduction techniques: automated exposure control, adjustment of the mA and/or kV according to patient size, and/or use of iterative reconstruction technique. COMPARISON: No relevant prior studies available. FINDINGS: BRAIN AND EXTRA-AXIAL SPACES: The cerebral and cerebellar sulci are prominent consistent with brain atrophy. Areas of decreased attenuation in the deep cerebral white matter are consistent with small vessel ischemic/degenerative changes. No acute intracranial hemorrhage, midline shift or mass effect. If symptoms persist, further evaluation with MRI is recommended. BONES/JOINTS: Unremarkable. No acute fracture. SOFT TISSUES: Unremarkable. SINUSES: Unremarkable as visualized. No acute sinusitis. MASTOID AIR CELLS: Unremarkable as visualized. No mastoid effusion. CT/Brain/Head without Contrast IMPRESSION: 1. Generalized brain atrophy. 2. Small vessel ischemic/degenerative changes. 3. No acute intracranial hemorrhage, midline shift or mass effect. If symptoms persist, further evaluation with MRI is recommended. Reading [facility]
--- NOTE | 2025-04-25 13:21 | CT_ITS ---
PROCEDURE: SINUS/FACIAL BONE 04/25/2025 REASON FOR EXAM: TRAUMA TECHNIQUE: SINUS/FACIAL BONE Coronal and Sagittal reconstruction series were provided. One or more dose reduction techniques were used (e.g., Automated exposure control, adjustment of the mA and/or kV according to patient size, use of iterative reconstruction technique). RADIATION DOSE SUMMARY: CTDlvol: 44.99 mGy DLP: 618 mGycm COMPARISON: None FINDINGS: Frontal: Unremarkable Ethmoid: Unremarkable Sphenoid: Unremarkable Maxillary: Unremarkable Turbinates: Unremarkable Nasal Septum: Nasal septal deviation towards left-sided midline Mastoids/Middle Ears: Unremarkable CT/Sinus/Facial Bone IMPRESSION: No acute abnormality is seen. Nasal septal deviation towards the left-sided of the midline. Reading Location: [id number]
--- NOTE | 2025-04-25 13:21 | CT_ITS ---
PROCEDURE: SPINE THORACIC WITHOUT CONTRAS 04/25/2025 REASON FOR EXAM: TRAUMA TECHNIQUE: SPINE THORACIC WITHOUT CONTRAS Coronal and Sagittal reconstruction series were provided. One or more dose reduction techniques were used (e.g., Automated exposure control, adjustment of the mA and/or kV according to patient size, use of iterative reconstruction technique). RADIATION DOSE SUMMARY: CTDlvol: 29.38 mGy DLP: 547.46 mGycm COMPARISON: None FINDINGS: Alignment: Increased kyphosis. Bones: Multilevel disc space narrowing and disc degeneration. Multilevel spondylosis. No acute fracture seen. Soft Tissues: No paravertebral soft tissue swelling is seen. Other: CT/Spine Thoracic without Contras IMPRESSION: Increased kyphosis. Multilevel disc space narrowing and spondylosis. No evidence of vertebral frac ture. Reading Location: [id number]
--- NOTE | 2025-04-25 13:22 | ED.VIS.FALL ---
HPI HPI - Fall History of Present Illness Chief Complaint: Fall Narrative Narrative: 84-year-old female presents with injury to her knees status post mechanical fall. She states that she was having new furniture delivered and she was carrying pillows in her hands. They recently had a new door installed as well, and the threshold is higher than what she remembers. She tripped and fell forward onto her face. She denies loss of consciousness. She states that the nose pads on her glasses were completely flattened. She sustained an injury to the bridge of her nose. She believes her tetanus immunization is current as she had a fall and she broke her nose 2 years ago, and it was updated at that time. She states that she never had her nose fractures fixed because they state that it was the tip of her nose that was broken. She denies any nosebleeding, but she is having neck pain at the base of her neck more towards C7 and T1. She denies other injuries. No arm or chest pain. No prodromal symptoms. This was more of a mechanical fall. She does not take any blood thinners. [facility] Medical History Wears glasses Depression Thyroid disease Arthritis DVT (deep venous thrombosis) Near syncope History of diverticulitis Shortness of breath on exertion Non-smoker Leg cramps History of Holter monitoring History of echocardiogram History of stress test Implantable loop recorder present Cardiology follow-up encounter Stress incontinence IBS (irritable bowel syndrome) Diverticulosis DDD (degenerative disc disease) Dizziness Syncope Pneumothorax, right Closed fracture of multiple ribs Cardiomegaly COVID Psoriasis Metabolic syndrome Hyponatremia Depressive disorder Vitamin D deficiency Cervical arthritis Hyperlipidemia Chest pressure CKD (chronic kidney disease) stage 3, GFR 30-59 ml/min MTHFR gene mutation Hypothyroid Fall History of DVT (deep vein thrombosis) BMI 37.0-37.9, adult Osteopenia Injury of elbow, left Acid reflux Postmenopausal Gait disturbance Presbyesophagus Hypothyroidism Hypertensive urgency Accelerated hypertension Home Medications ?Medication ?Instructions ?Recorded ?Last Taken ?Type cholecalciferol (vitamin D3) 50 50 mcg PO DAILY 05/21/23 04/25/25 History mcg (2,000 unit) capsule folic acid 400 mcg tablet 0.4 mg PO DAILY 05/21/23 04/25/25 History ibandronate 150 mg tablet 150 mg PO QMONTH 05/21/23 03/28/25 History levothyroxine 100 mcg tablet 150 mcg PO DAILY 06/10/23 04/25/25 History (Synthroid) Lactobacillus acidophilus 10 100 mmu cells PO DAILY 11/02/24 04/25/25 History billion cell capsule (Probiotic) calcium 100 mg capsule 100 mg PO DAILY 11/02/24 04/25/25 History acetaminophen 500 mg tablet 1,000 mg (2 x 500 mg) PO Q8 14 11/30/24 04/24/25 Rx days #84 tabs sennosides 8.6 mg-docusate sodium 2 tab PO BID 3 days #12 tabs 11/30/24 Unknown Rx 50 mg tablet (Stimulant Laxative Plus) amlodipine 2.5 mg tablet 2.5 mg PO DAILY 04/25/25 04/25/25 History citalopram 40 mg tablet 40 mg PO DAILY 04/25/25 04/25/25 History tramadol 50 mg tablet 50 mg PO Q6H Pain 3 days #12 tabs 04/25/25 Unknown Rx Allergy/AdvReac Type Severity Reaction Status Date / Time diphenhydramine (From Allergy Angioedema Verified 04/25/25 12:52 Benadryl) prednisone Allergy Angioedema Verified 04/25/25 12:52 Sulfa (Sulfonamide Allergy Hives Verified 04/25/25 12:52 Antibiotics) amoxicillin (From Augmentin) AdvReac Nausea/Vom/ Verified 04/25/25 12:52 Diarrhea clavulanic acid (From AdvReac Nausea/Vom/ Verified 04/25/25 12:52 Augmentin) Diarrhea Family History Father Hypertension Myocardial infarction Aortic aneurysm Mother Hypertension Brain aneurysm Brother Aortic aneurysm Sister Thyroid disorder DVT (deep venous thrombosis) Hypertension Daughter Pulmonary embolism Thyroid disorder Grandmother Diabetes Surgical History Status post total left knee replacement History of tonsillectomy H/O cataract extraction Hx of arthroscopy of right knee History of carpal tunnel release of both wrists Social History Smoking Status: Never smoker alcohol intake: never substance use type: does not use caffeine: Yes Type: coffee Number of servings: 4 and tea ROS ROS ED ROS Narrative Review of systems positive for laceration to bridge of nose/avulsion. No loss of consciousness. Positive neck pain. No paresthesias of arms or legs, denies other injuries. EXAM Physical Exam Narrative Exam Narrative: GCS 15. ABCs intact. HEENT examination does show PERRL, EOMI. There is a 2 cm laceration/avulsion laceration at the bridge of the nose with minimal active bleeding. No nasal septal hematoma. No bony tenderness. Neck is soft and supple with out step-off. She has mild tenderness to palpation at the level of C7-T1. Cardiovascular examination regular rate and rhythm. Lungs are clear to auscultation bilaterally. Abdomen is soft and nontender with positive bowel sounds, no guarding or rebound. Neurological examination is nonfocal, nonlateralizing. Able to raise arms above head without difficulty. Awake, alert, oriented x 3. Interactive. Moves all extremities. Const Vital Signs: 04/25/25 12:51 04/25/25 12:51 04/25/25 14:13 Temperature 98 F 98.1 F Temperature Source Temporal Oral Pulse Rate 93 73 Respiratory Rate 18 16 Respiratory Effort Normal Blood Pressure 159/96 H 178/97 H Blood Pressure Mean 117 124 Pulse Ox 98 95 Oxygen Delivery Method Room Air Room Air 04/25/25 15:20 Temperature Temperature Source Pulse Rate 84 Respiratory Rate 16 Respiratory Effort Blood Pressure 173/93 H Blood Pressure Mean 119 Pulse Ox 97 Oxygen Delivery Method Room Air MDM MDM MDM Narrative Medical decision making narrative: The differential diagnosis includes but not limited to intracranial hemorrhage versus closed head injury versus open nasal fracture versus nasal bridge laceration with contusion. Regarding her neck pain, she may have a vertebral process fracture versus strain. She was administered 1 oxycodone 5 mg tablet for analgesia and 4 CTs were obtained of the brain, facial bones, C-spine, and thoracic spine to help rule out fractures. I reviewed the radiology reports for the CT of the brain and there is generalized atrophy but no acute intracranial hemorrhage. CT of the cervical spine shows no acute fracture but degenerative changes. CT of the facial bones shows no acute fracture, no acute abnormality. She does have a deviated septum. CT of the thoracic spine shows no evidence of acute fracture. Patient had declined oxycodone and prefers tramadol. She was informed of the results of no fracture and laceration repair of the nose was performed. See procedure note for details. At this point in time, she will be discharged to apply ice to the bridge of her nose and follow-up with her primary care provider in 5 days for suture removal. She was told that she could also return to the emergency department and she was also referred to plastic surgery. She was written a prescription for tramadol for the next 3 days to take every 6 hours. Return instructions to the emergency department were reviewed. Disposition is discharged home in stable condition. History & Record Review Discussion w/independent historian: Patient Radiography Diagnostic Testing: Clinical Impression(s) from Imaging Studies Brain CT 04/25/25 13:21 IMPRESSION: 1. Generalized brain atrophy. 2. Small vessel ischemic/degenerative changes. 3. No acute intracranial hemorrhage, midline shift or mass effect. If symptoms persist, further evaluation with MRI is recommended. Reading Location: [facility] Cervical Spine CT 04/25/25 13:21 IMPRESSION: 1. No acute fracture. 2. Degenerative changes of the cervical spine as described. Reading Location: [facility] Facial/Sinus 04/25/25 13:21 IMPRESSION: No acute abnormality is seen. Nasal septal deviation towards the left-sided of the midline. Reading Location: [id number] Thoracic Spine CT 04/25/25 13:21 IMPRESSION: Increased kyphosis. Multilevel disc space narrowing and spondylosis. No evidence of vertebral fracture. Reading Location: [id number] Procedures Lacerations Nose: Length: 0.79 in Depth: Skin Shape: Linear (With tiny flap at the tip of laceration) Prep: Sterile Conditions and Shure-Clens Laceration repair: Irrigated, Lidocaine and Local Number of Sutures/Any: 6 Suture Information: Ethilon, Simple and 5-0 (For tensile strength) Comment: Informed of risk of infection and scarring and acknowledges an understanding. Patient tolerated procedure well. Discharge Plan Triage Chief Complaint: Fall ED Provider: Mayur Henderson Dx/Rx/DC Orders Clinical Impression: Fall, Laceration of nose, Nasal contusion, Closed head injury, Strain of thoracic spine, Neck strain Instructions: ED FACIAL LACERATION Suture Tape, ED Nasal Contusion, ED Neck Sprain or Strain Prescriptions: New tramadol 50 mg tablet 50 mg PO Q6H 3 Days Qty: 12 0RF No Action cholecalciferol (vitamin D3) 50 mcg (2,000 unit) capsule 50 mcg PO DAILY ibandronate 150 mg tablet 150 mg PO QMONTH levothyroxine [Synthroid] 100 mcg tablet 150 mcg PO DAILY Rx Instructions: take Thursday through Thursday folic acid 400 mcg tablet 0.4 mg PO DAILY Rx Instructions: take 1 twice daily if on methotrexate citalopram 40 mg tablet 40 mg PO DAILY amlodipine 2.5 mg tablet 2.5 mg PO DAILY Probiotic 10 billion cell capsule 100 mmu cells PO DAILY calcium 100 mg capsule 100 mg PO DAILY acetaminophen 500 mg Tablet 1,000 mg PO Q8 14 Days Qty: 84 0RF Rx Instructions: Do not take more than 3000 mg Tylenol in a 24-hour period. sennosides-docusate sodium [Stimulant Laxative Plus] 8.6-50 mg Tablet 2 tab PO BID 3 Days Qty: 12 0RF Rx Instructions: Take until first bowel movement, then as needed Primary Care Provider: Joellen Duffy Referrals: Leland Briscoe MD [Med Staff - Active Staff] - 5 Days for suture removal Joellen Duffy [employer] [Primary Care Provider] - 5 Days for suture removal Activity Restrictions/Additional Instructions: Ice to bridge of nose to help with swelling. Have sutures removed by your primary care provider or plastic surgery in 5 days. Return with fever, drainage of pus from wound, increased redness, new or worsening symptoms. Tramadol as needed for pain. Print Language: [place] Disposition Disposition: Home, Self Care
[2025-04-25 13:39] VITALS: BMI 34.2
[2025-04-25] MEDS: Lidocaine 1% (20 ml mdv) 20 ML Vial INFILT (13:40)
[2025-04-25 15:20] VITALS: BP 173/93; PULSE 84; RESP 16; O2SAT 97
[2025-04-25 15:45] VITALS: BP 158/84; PULSE 73; RESP 14; TEMP 36.7; O2SAT 98
== END 2025-04-25 15:57 | disposition home or self-care (01) ==
PROVIDERS: Emergency Provider Emergency Medicine; PCP Nurse Practitioner Family; Visit Provider Emergency Medicine
DX: S01.21XA Laceration without foreign body of nose, initial encounter (principal); N18.30 Chronic kidney disease, stage 3 unspecified; S16.1XXA Strain of muscle, fascia and tendon at neck level, initial encounter; S23.3XXA Sprain of ligaments of thoracic spine, initial encounter; S09.90XA Unspecified injury of head, initial encounter; W01.198A Fall on same level from slipping, tripping and stumbling with subsequent striking against other object, initial encounter; Y93.89 Activity, other specified; E78.5 Hyperlipidemia, unspecified; I12.9 Hypertensive chronic kidney disease with stage 1 through stage 4 chronic kidney disease, or unspecified chronic kidney disease; E03.9 Hypothyroidism, unspecified; Z79.890 Hormone replacement therapy; F32.A Depression, unspecified; Z79.899 Other long term (current) drug therapy; Z96.652 Presence of left artificial knee joint; Z98.49 Cataract extraction status, unspecified eye
CPT/HCPCS: 12011; 70450; 70486; 72125; 72128; 99283

== ENCOUNTER 2025-06-14 19:41 | Emergency (ER) | payer MEDICARE, SELFPAY ==
[2025-06-14 19:42] VITALS: BP 156/89; PULSE 87; RESP 16; TEMP 36.5; O2SAT 99; BMI 33.4
--- NOTE | 2025-06-14 20:15 | CT_ITS ---
PROCEDURE: BRAIN/HEAD WITHOUT CONTRAST 06/14/2025 REASON FOR EXAM: TRAUMA TECHNIQUE: Procedure Code: CTBR Modality: CT Procedure: BRAIN/HEAD WITHOUT CONTRAST Coronal and Sagittal reconstruction series were provided. One or more dose reduction techniques were used (e.g., Automated exposure control, adjustment of the mA and/or kV according to patient size, use of iterative reconstruction technique. RADIATION DOSE SUMMARY: CTDlvol: 19.74 mGy DLP: 1894.52 mGycm COMPARISON: CT head 04/25/2025. FINDINGS: Brain: Low density in the periventricular white matter suggests mild chronic small vessel ischemic changes. No acute territorial infarction. No acute intracranial hemorrhage. No mass-effect or midline shift. No ventriculomegaly. The orbits are unremarkable. Atherosclerotic calcifications of the the siphons. CSF Spaces: Mild generalized cerebral atrophy Sinuses/Mastoids: Clear. Bones: No acute intracranial abnormalities. Soft tissues: Left frontal scalp hematoma. CT/Brain/Head without Contrast IMPRESSION: No acute intracranial abnormalities. Reading Location: [id number]
--- NOTE | 2025-06-14 20:15 | CT_ITS ---
PROCEDURE: SINUS/FACIAL BONE 06/14/2025 REASON FOR EXAM: TRAUMA TECHNIQUE: Procedure Code: CTSI Modality: CT Procedure: SINUS/FACIAL BONE Coronal and Sagittal reconstruction series were provided. One or more dose reduction techniques were used (e.g., Automated exposure control, adjustment of the mA and/or kV according to patient size, use of iterative reconstruction technique). RADIATION DOSE SUMMARY: CTDlvol: 19.74 mGy DLP: 1894.52 mGycm COMPARISON: CT maxillofacial 04/25/2025. FINDINGS: Frontal: Clear. Ethmoid: Clear. Sphenoid: Clear. Maxillary: Clear. Turbinates: Unremarkable. A 5 mm spur Nasal Septum: Protrudes into the left nasal cavity. Mastoids/Middle Ears: Clear. Bones: No acute fractures. Orbits: No acute orbital abnormalities. Temporomandibular joints: Well aligned. No acute fractures. Soft tissues: Left frontal views tissue hematoma. CT/Sinus/Facial Bone IMPRESSION: Left frontal scalp hematoma. Otherwise, no acute injuries. No paranasal sinus mucosal thickening. Reading Location: [facility]
--- NOTE | 2025-06-14 20:15 | CT_ITS ---
PROCEDURE: SPINE CERVICAL WITHOUT CONTRAS 06/14/2025 REASON FOR EXAM: TRAUMA TECHNIQUE: Procedure Code: CTSPC Modality: CT Procedure: SPINE CERVICAL WITHOUT CONTRAS Coronal and Sagittal reconstruction series were provided. One or more dose reduction techniques were used (e.g., Automated exposure control, adjustment of the mA and/or kV according to patient size, use of iterative reconstruction technique. RADIATION DOSE SUMMARY: CTDlvol: 19.74 mGy DLP: 8094.52 mGycm COMPARISON: CT cervical spine 04/25/2025. FINDINGS: Alignment: Normal. Vertebrae: No acute bony abnormalities. Soft Tissues: None. Disc levels: Multilevel degenerate changes. For example, C5-C6 where there is facet joint arthropathy, disc osteophyte complex with severe right foramina stenosis. No significant canal stenosis. CT/Spine Cervical without Contras IMPRESSION: No acute injury to the cervical spine. Reading Location: [id number]
--- NOTE | 2025-06-14 20:32 | RAD_ITS ---
PROCEDURE: HAND MIN 3 VIEWS 06/14/2025 REASON FOR EXAM: FALL, PAIN TECHNIQUE: Procedure Code: ADRIANE Modality: DX Procedure: HAND MIN 3 VIEWS Laterality: Right COMPARISON: None. FINDINGS: Bones: No acute bony abnormalities. Osteopenia. Joints: No dislocations. Soft tissues: No soft tissue abnormalities. RAD/Hand Min 3 Views IMPRESSION: No acute osseous abnormalities. Reading Location: [id number]
--- NOTE | 2025-06-14 20:32 | RAD_ITS ---
PROCEDURE: HAND MIN 3 VIEWS 06/14/2025 REASON FOR EXAM: FALL, PAIN TECHNIQUE: Procedure Code: ADRIANE Modality: DX Procedure: HAND MIN 3 VIEWS Laterality: Left.. COMPARISON: None. FINDINGS: Bones: Osteopenia. No acute bony abnormalities. Joints: 1st carpometacarpal joint space narrowing with sclerosis consistent with osteoarthritis. Narrowing of the distal and proximal interphalangeal joints. Soft tissues: No abnormalities. RAD/Hand Min 3 Views IMPRESSION: No acute osseous abnormalities. Reading Location: [id number]
[2025-06-14] MEDS: Lidocaine 1% (20 ml mdv) 20 ML Vial INFILT (20:39)
[2025-06-14 21:42] VITALS: BP 170/88; PULSE 84; O2SAT 97
--- NOTE | 2025-06-14 21:57 | ED.VIS.FALL ---
HPI HPI - Fall History of Present Illness Chief Complaint: Fall Narrative Narrative: Chief complaint and HPI: 84-year-old female with past medical history of frequent falls, HTN, HLD, hypothyroidism presents for evaluation of closed head injury after fall. Patient states that she [place] walking in the [employer] [place] when the ground was uneven. States she was not using her cane or walker. She fell forward with her hands stretched out before her. She hit her face on the concrete. Denies LOC. Not on blood thinners. Endorses a headache, neck pain, bilateral hand pain. She has a hematoma to the forehead with laceration to the nose and abrasions to the hand. She denies any fever, chills, lightheadedness, shortness of breath, chest pain abdominal pain, nausea, vomiting, dysuria. States this was purely mechanical fall. Review of systems: See HPI Medications: As listed on the chart Allergies: As listed on the chart PFSH: Per chart Vital signs: As listed on the chart. Reviewed. Physical exam: Gen: A&O x3, NAD Head: Normocephalic, left-sided frontal hematoma Eyes: No sclera icterus, conjunctiva clear, PERRL, EOMI without pain ENT: TMs clear BL, moist mucous membranes, posterior oropharynx unremarkable without blood /laceration/swelling,dentition intact, no midface instability, abrasion to the face located beneath the left nostril, 0.5 cm laceration to the bridge of the nose that will need repaired, no swelling/lacerations/blood in the nares, No nasal septal hematoma, mild facial tenderness diffusely Neck: Trachea midline, No JVD, no midline spinal tenderness, no bony step-offs, mild tenderness to palpation of the paraspinal musculature bilaterally CV: RRR, no murmurs, no chest wall TTP Resp: Lungs CTA BL, no w/r/c GI: Abd soft, non-distended, non-tender, no r/r/g Musc: Full ROM, no deformity, no spinal TTP, no gabbie step-offs tenderness to palpation to the bilateral hands mostly located over the bilateral fifth metacarpals-bruising associated with the left, no bruising associated with the right hand, abrasions to bilateral hands without any laceration repair needed, radial pulses +2 bilaterally, compartments soft, sensation intact, good capillary refill Skin: Warm, dry Neuro: Alert, oriented, grossly intact, sensation intact, GCS 15 Psych: Cooperative, appropriate mood and affect [facility] Medical History Wears glasses Depression Thyroid disease Arthritis DVT (deep venous thrombosis) Near syncope History of diverticulitis Shortness of breath on exertion Non-smoker Leg cramps History of Holter monitoring History of echocardiogram History of stress test Implantable loop recorder present Cardiology follow-up encounter Stress incontinence IBS (irritable bowel syndrome) Diverticulosis DDD (degenerative disc disease) Dizziness Syncope Pneumothorax, right Closed fracture of multiple ribs Cardiomegaly COVID Psoriasis Metabolic syndrome Hyponatremia Depressive disorder Vitamin D deficiency Cervical arthritis Hyperlipidemia Chest pressure CKD (chronic kidney disease) stage 3, GFR 30-59 ml/min MTHFR gene mutation Hypothyroid Fall History of DVT (deep vein thrombosis) BMI 37.0-37.9, adult Osteopenia Injury of elbow, left Acid reflux Postmenopausal Gait disturbance Presbyesophagus Hypothyroidism Hypertensive urgency Accelerated hypertension Home Medications ?Medication ?Instructions ?Recorded ?Last Taken ?Type cholecalciferol (vitamin D3) 50 50 mcg PO DAILY 05/21/23 04/25/25 History mcg (2,000 unit) capsule folic acid 400 mcg tablet 0.4 mg PO DAILY 05/21/23 04/25/25 History ibandronate 150 mg tablet 150 mg PO QMONTH 05/21/23 03/28/25 History levothyroxine 100 mcg tablet 150 mcg PO DAILY 06/10/23 04/25/25 History (Synthroid) Lactobacillus acidophilus 10 100 mmu cells PO DAILY 11/02/24 04/25/25 History billion cell capsule (Probiotic) calcium 100 mg capsule 100 mg PO DAILY 11/02/24 04/25/25 History acetaminophen 500 mg tablet 1,000 mg (2 x 500 mg) PO Q8 14 11/30/24 04/24/25 Rx days #84 tabs sennosides 8.6 mg-docusate sodium 2 tab PO BID 3 days #12 tabs 11/30/24 Unknown Rx 50 mg tablet (Stimulant Laxative Plus) amlodipine 2.5 mg tablet 2.5 mg PO DAILY 04/25/25 04/25/25 History citalopram 40 mg tablet 40 mg PO DAILY 04/25/25 04/25/25 History tramadol 50 mg tablet 50 mg PO Q6H Pain 3 days #12 tabs 04/25/25 Unknown Rx Allergy/AdvReac Type Severity Reaction Status Date / Time diphenhydramine (From Allergy Angioedema Verified 06/14/25 19:42 Benadryl) prednisone Allergy Angioedema Verified 06/14/25 19:42 Sulfa (Sulfonamide Allergy Hives Verified 06/14/25 19:42 Antibiotics) amoxicillin (From Augmentin) AdvReac Nausea/Vom/ Verified 06/14/25 19:42 Diarrhea clavulanic acid (From AdvReac Nausea/Vom/ Verified 06/14/25 19:42 Augmentin) Diarrhea Family History Father Hypertension Myocardial infarction Aortic aneurysm Mother Hypertension Brain aneurysm Brother Aortic aneurysm Sister Thyroid disorder DVT (deep venous thrombosis) Hypertension Daughter Pulmonary embolism Thyroid disorder Grandmother Diabetes Surgical History Status post total left knee replacement History of tonsillectomy H/O cataract extraction Hx of arthroscopy of right knee History of carpal tunnel release of both wrists Social History Smoking Status: Never smoker alcohol intake: never substance use type: does not use caffeine: Yes Type: coffee Number of servings: 4 and tea EXAM Physical Exam Const Vital Signs: 06/14/25 19:42 06/14/25 21:42 Temperature 97.7 F L Temperature Source Temporal Pulse Rate 87 84 Respiratory Rate 16 Blood Pressure 156/89 H 170/88 H Blood Pressure Mean 111 115 Pulse Ox 99 97 Oxygen Delivery Method Room Air Room Air MDM MDM MDM Narrative Medical decision making narrative: 84-year-old female with past medical history of frequent falls, HTN, HLD, hypothyroidism presents for evaluation of closed head injury after fall. Patient states that she was walking [place] the [employer] [place] when the ground was uneven. States she was not using her cane or walker. She fell forward with her hands stretched out before her. She hit her face on the concrete. Denies LOC. Not on blood thinners. Endorses a headache, neck pain, bilateral hand pain. See physical exam findings. Given this was purely mechanical fall, I do not think any laboratory workup is needed at this time. Tylenol given for pain. CT of the head, neck, face and x-rays of the bilateral hands performed. Differential diagnosis includes but is not limited to contusion, fracture, intracranial bleed. CT head, neck, face without any acute traumatic fractures or dislocations. X-rays of the bilateral hands were personally reviewed and interpreted by de, ED physician. No fracture or dislocation. Radiology in agreement. Nasal bridge laceration was repaired. Patient tolerated this well. Her tetanus is up-to-date. She ambulated in the emergency department without difficulty. Recommend using her walker as well as cane with ambulation. Follow-up with PCP. Sutures need removed in 5 days. She confirmed understand the plan. Patient stable to discharge home. Laceration Repair Indication: Laceration Location: 0.5 cm nasal bridge laceration Consent: Risks, benefits, and alternatives discussed with patient and consent obtained Procedure: A time out was performed. The area was prepped and draped in the usual sterile fashion. Local anesthesia was achieved using 1% Lidocaine without epinephrine. The wound was copiously irrigated and cleaned. 2 sutures were placed using 5-0 Ethilon in an interrupted fashion. The estimated blood loss was minimal. A dressing was applied to the area with Bacitracin. The patient tolerated the procedure well without complications. Foreign Material: None Debridement: None Follow-up: Anticipatory guidance, as well as standard post-procedure care, was explained. Return precautions are given. Follow-up visit set for suture removal and evaluation of the laceration. Impression: 1. Mechanical fall 2. Closed head injury 3. Frontal hematoma 4. Nasal bridge laceration, s/p repair 5. Abrasions 6. Bilateral hand contusions Radiography Diagnostic Testing: Clinical Impression(s) from Imaging Studies Brain CT 06/14/25 20:15 IMPRESSION: No acute intracranial abnormalities. Reading Location: [facility] 234 BEDS AT [facility] Cervical Spine CT 06/14/25 20:15 IMPRESSION: No acute injury to the cervical spine. Reading Location: [id number] Facial/Sinus 06/14/25 20:15 IMPRESSION: Left frontal scalp hematoma. Otherwise, no acute injuries. No paranasal sinus mucosal thickening. Reading Location: [facility] 234 BEDS AT [facility] Hand X-Ray 06/14/25 20:32 IMPRESSION: No acute osseous abnormalities. Reading Location: [facility]CLUDE 234 BEDS AT [facility] Hand X-Ray 06/14/25 20:32 IMPRESSION: No acute osseous abnormalities. Reading Location: [facility]CLUDE 234 BEDS AT [facility] Discharge Plan Triage Chief Complaint: Fall ED Provider: Phill Damian Dx/Rx/DC Orders Prescriptions: No Action cholecalciferol (vitamin D3) 50 mcg (2,000 unit) capsule 50 mcg PO DAILY ibandronate 150 mg tablet 150 mg PO QMONTH levothyroxine [Synthroid] 100 mcg tablet 150 mcg PO DAILY Rx Instructions: take Thursday through Thursday folic acid 400 mcg tablet 0.4 mg PO DAILY Rx Instructions: take 1 twice daily if on methotrexate citalopram 40 mg tablet 40 mg PO DAILY amlodipine 2.5 mg tablet 2.5 mg PO DAILY tramadol 50 mg tablet 50 mg PO Q6H 3 Days Qty: 12 0RF Probiotic 10 billion cell capsule 100 mmu cells PO DAILY calcium 100 mg capsule 100 mg PO DAILY acetaminophen 500 mg Tablet 1,000 mg PO Q8 14 Days Qty: 84 0RF Rx Instructions: Do not take more than 3000 mg Tylenol in a 24-hour period. sennosides-docusate sodium [Stimulant Laxative Plus] 8.6-50 mg Tablet 2 tab PO BID 3 Days Qty: 12 0RF Rx Instructions: Take until first bowel movement, then as needed Primary Care Provider: Joellen Duffy Referrals: Joellen Duffy, [facility] [Primary Care Provider, Internal Medicine] Print Language: Greenlandic
[2025-06-14 22:11] VITALS: BP 170/88; PULSE 84; RESP 16; TEMP 36.7; O2SAT 97
== END 2025-06-14 22:12 | disposition home or self-care (01) ==
PROVIDERS: Emergency Provider Surgery; PCP Nurse Practitioner Family; Visit Provider Surgery
DX: S01.21XA Laceration without foreign body of nose, initial encounter (principal); S60.511A Abrasion of right hand, initial encounter; S60.512A Abrasion of left hand, initial encounter; S60.222A Contusion of left hand, initial encounter; S60.221A Contusion of right hand, initial encounter; W01.0XXA Fall on same level from slipping, tripping and stumbling without subsequent striking against object, initial encounter; Z91.81 History of falling; Y93.01 Activity, walking, marching and hiking; Y92.481 Parking lot as the place of occurrence of the external cause; I10 Essential (primary) hypertension; E78.5 Hyperlipidemia, unspecified; E03.9 Hypothyroidism, unspecified; F32.A Depression, unspecified; K58.9 Irritable bowel syndrome, unspecified; E55.9 Vitamin D deficiency, unspecified; M85.80 Other specified disorders of bone density and structure, unspecified site; Z86.718 Personal history of other venous thrombosis and embolism; Z79.899 Other long term (current) drug therapy; Z79.890 Hormone replacement therapy
CPT/HCPCS: 12011; 70450; 70486; 72125; 73130; 99283